=== PATIENT | female | born 1955 | race Caucasian/White ===

== ENCOUNTER → 2018-03-13 | Outpatient (CLI) | payer MEDICARE ==
[2018-03-13 12:44] LABS: HCT 41.4 % (34.0-46.0); HGB 13.4 gm/dL (11.4-16.0); MCH 30.6 pg (25.0-35.0); MCHC 32.4 g/dL (31.0-37.0); MCV 94.4 fL (80.0-100.0); Platelet Count 211 k/uL (150-450); RBC 4.38 m/uL (3.80-5.40); RDW 13.3 % (11.5-15.5); WBC 6.9 k/uL (3.8-10.6)
[2018-03-13 12:46] LABS: Appearance,Urine Clear (Clear); Bilirubin,Urine Negative (Negative); Blood,Urine Negative (Negative); Color,Urine Yellow; Glucose,Urine (UA) Negative (Negative); Ketones,Urine Negative (Negative); Leukocyte Esterase,Urine Negative (Negative); Nitrite,Urine Negative (Negative); PH, Urine 5.5 (5.0-8.0); Protein,Urine Trace (Negative); Specific Gravity,Urine 1.018 (1.001-1.035)
[2018-03-13 12:47] LABS: Albumin 4.3 g/dL (3.5-5.0); Potassium 4.2 mmol/L (3.5-5.1); Total Bilirubin 0.5 mg/dL (0.2-1.3); Total Protein 7.1 g/dL (6.3-8.2)
[2018-03-13 12:48] LABS: Partial Thromboplastin Time 24.6 sec (22.0-30.0); Prothrombin Time 10.7 sec (9.0-12.0)
== END | disposition home or self-care (01) ==
LOC: LABPAT 11:56
PROVIDERS: ATTEND Orthopaedic Surgery
DX: Z01.812 Encounter for preprocedural laboratory examination (principal); M23.8X1 Other internal derangements of right knee; Z79.01 Long term (current) use of anticoagulants
CPT/HCPCS: 36415; 80053; 81003; 85027; 85610; 85730; 87070

== ENCOUNTER 2018-03-19 09:53 | Inpatient (IN) | payer BC, MEDICARE ==
[2018-03-12 16:08] VITALS: BMI 33.6
[~2018-03-19 09:53] MED LIST: ACETAMINOPHEN TAB 500 MG TAB PO ONE; DEXAMETHASONE SOD PHOSPHATE 10 MG/ML 1 ML VIAL IV ONE; HYDROmorphone 1 MG/ML 1 ML SYRINGE IVP PRN; LIDOCAINE 1% 20 ML VIAL (10MG/ML) FOR IV START INTRADERMA PRN; MELOXICAM 7.5 MG TAB PO ONE; MIDAZOLAM (PF) 2 MG/2 ML VIAL IV PRN; ONDANSETRON 4 MG/2 ML VIAL IVP ONE; ROPIVACAINE 246.25 MG, EPINEPHrine 0.5 MG, KETOROLAC 30 MG, cloNIDine HCL/PF 80 MCG, WA... MISCELLANE ONE; SCOPOLAMINE 1.5MG/72HR PATCH TRANSDERM ONE; TRANEXAMIC ACID 1,000 MG in SODIUM CHLORIDE 0.9% 50 ML IVPB ONE; ceFAZolin IN SWFI 2 GM/20 ML SYRINGE IVP ONE
[2018-03-19] MEDS ORDERED: ROPIVACAINE 1,100 MG, SODIUM CHLORIDE 0.9% 500 ML 330 ML MISCELLANE PRN ×4 (10:57→12:15)
[2018-03-19] MEDS: LACTATED RINGERS 1,000 ML IV SCH (11:30)
[2018-03-19] MEDS ORDERED: fentaNYL (PF) 50 MCG/ML 2 ML AMP IVP ONE (11:53)
[2018-03-19] MEDS ORDERED: MIDAZOLAM 2 MG/2 ML VIAL IVP ONE (11:53)
[2018-03-19] MEDS ORDERED: ONDANSETRON 4 MG/2 ML VIAL IVP PRN (12:15)
[2018-03-19] MEDS ORDERED: HYDROcodone/APAP 5-325MG 1 EACH TAB PO PRN ×2 (12:15)
[2018-03-19] MEDS ORDERED: MAGNESIUM HYDROXIDE 2,400 MG/10 ML CUP PO PRN (12:15)
[2018-03-19] MEDS ORDERED: hydrOXYzine PAMOATE 25 MG CAP PO PRN (12:15)
[2018-03-19] MEDS ORDERED: HYDROmorphone 1 MG/ML 1 ML SYRINGE IVP PRN ×3 (12:15)
[2018-03-19] MEDS ORDERED: NALOXONE 0.4 MG/ML 1 ML VIAL IV PRN (12:15)
[2018-03-19] MEDS ORDERED: DIAZEPAM 5 MG TAB PO PRN (12:15)
[2018-03-19] MEDS ORDERED: NA PHOS,M-B/NA PHOS,DI-BA 133 ML ENEMA RECTAL PRN (12:15)
[2018-03-19] MEDS ORDERED: BISACODYL 10 MG SUPP RECTAL PRN (12:15)
--- NOTE | 2018-03-19 12:16 | P.ONQ ---
Anesthesiology Proc Note - PNB - Peripheral Nerve Block Performed Right Adductor Canal Infusion Time Out Performed: Yes (8840) Procedure Start Time: 11:52 Procedure Stop Time: 12:00 Indication: Acute Post-Operative Pain, Dx/Pain Location (Right Knee Pain), Requested by physician Sedation Type: Sedate with meaningful contact maintained Preparation: Sterile Prep Position: Supine Catheter: Indwelling Needle Types: On-Q Needle Size: 100mm (4") Technique: Ultrasound Injectate: 0.5% Ropivacaine (see comment for volume) (20ml) Blood Aspirated: No Pain Paresthesia on Injection Noted: No Resistance on Injection: Normal Events: Uneventful and Well Tolerated
[2018-03-19] MEDS ORDERED: ePHEDrine SULFATE/0.9% NACL/PF 50 MG/5 ML SYRINGE IV ONE (12:28)
[2018-03-19] MEDS ORDERED: SUCCINYLCHOLINE CHLORIDE 100 MG/5 ML SYR IV ONE (12:28)
[2018-03-19] MEDS ORDERED: MIDAZOLAM 2 MG/2 ML VIAL ONE (12:28)
[2018-03-19] MEDS ORDERED: ONDANSETRON 4 MG/2 ML VIAL ONE (12:28)
[2018-03-19] MEDS ORDERED: HYDROmorphone (PF) 1 MG/ML ONE (12:28)
[2018-03-19] MEDS ORDERED: PROPOFOL 10 MG/ML 20 ML VIAL IV ONE (12:28)
[2018-03-19] MEDS ORDERED: fentaNYL (PF) 50 MCG/ML 2 ML AMP ONE (12:28)
[2018-03-19] MEDS ORDERED: SODIUM CHLORIDE 0.9% 100 ML BAG ONE (12:28)
[2018-03-19] MEDS ORDERED: TRANEXAMIC ACID 1,000 MG/10 ML VIAL ONE (12:28)
[2018-03-19] MEDS ORDERED: ceFAZolin 3,000 MG in SODIUM CHLORIDE 0.9% IRRIGATIO 3,000 ML IRRIGATION ONE (13:00)
[2018-03-19] MEDS ORDERED: LACTATED RINGERS 1,000 ML IV ONE (13:18)
--- NOTE | 2018-03-19 14:31 | P.OP ---
Date of Procedure: 03/19/18 Preoperative Diagnosis: Ligamentous instability right total knee arthroplasty Postoperative Diagnosis: 1. Ligamentous instability right total knee arthroplasty 2. Loosening right tibial component Procedure(s) Performed: Revision right total knee arthroplasty Implants: [employer]hew Legion constrained Oxinium femoral component size 5, right [employer] Legion press-fit stem 13 mm x 160 mm Lay [employer] Neplegion revision tibial baseplate size 4, right [employer] Legion press-fit stem 11 mm x 120 mm Lay [employer] Nephew size 15 mm Carmen II constrained articular insert, size 3-4 All components were cemented using [place] bone cement with tobramycin The articulation is Oxinium on polyethylene. Anesthesia: spinal Surgeon: Dillon Finn Telecom Coordinator #1: Neda Alan Estimated Blood Loss (ml): 50 Pathology: other (Cultures 2, frozen section) Condition: stable Disposition: PACU Indications for Procedure: This is a 63-year-old female that has had a right total knee arthroplasty performed by myself in the past. She has subsequently developed ligamentous instability of her right total knee and because of this instability requires a revision of her total knee. After discussing the surgical nonsurgical treatment options with her at length she wishes to proceed with a revision of her right total knee arthroplasty. Informed consent was obtained. Operative Findings: The operative findings are consistent with ligamentous instability and gross loosening of the tibial component of the right total knee arthroplasty Description of Procedure: Patient was seen in the preoperative area consent was reviewed and operative site was marked with a skin marker. An adductor canal pain catheter was placed by anesthesia in the preoperative area. Patient was then brought to the operating room and given preoperative antibiotics intravenously. A spinal anesthetic was administered by the anesthesia department. A tourniquet was placed on the upper thigh and the lower extremity was prepped and draped in usual sterile fashion. A gram of transexamic acid was given. A universal timeout was then performed which confirmed the patient's name, surgical site, ALLERGIES, and consent. The lower extremity was then exsanguinated and tourniquet was inflated to 250 mmHg. A standard and anterior midline approach to the knee was performed. The skin and subcutaneous tissue was dissected down to the patellar tendon. A medial parapatellar arthrotomy was then performed. The knee was then extended, the patellar was everted, and the knee was again flexed. The knee was then cultured 2. A frozen section was obtained which was found to be negative for acute inflammation. The prosthesis was then evaluated and the tibial component was found to be grossly loose. Using a small oscillating saw, the cement implant interface was disrupted and the femoral and tibial components were then removed without difficulty. Next, sequential reaming of the femoral canal was then performed by hand. The femur was then sized and the distal cutting block was then placed in the distal femur was then freshened with a cut. Next the 4- in-1 cutting block was then placed, and set for the appropriate rotation. Anterior posterior chamfer cuts were then performed as well as anterior posterior cuts. The trial femur was then placed with appropriate length stem. Next the box cutting guide was placed in the bone for the box was then reamed and removed. Femoral trial was then removed. Attention was then directed to the tibia. Sequential reaming of the tibial canal was then performed with appropriate size. The intramedullary tibial cutting guide was then placed the tibia was then freshened with a minimal resection. The tibia was then sized and the canal was prepared for the stem. The tibial trial was then placed and found to have a good fit. The femoral trial was then placed as well. Next, the insert trials were then sequentially used until the appropriate-sized insert was reached. Knee was able to fully extend and flex to 120 and was stable to varus and valgus and anterior posterior stresses throughout all range of motion. Trials were then removed. The cut surfaces of bone were then irrigated with pulsatile lavage. The posterior structures were injected with the ropivacaine solution. The knee was also irrigated with Irrisept solution. The components were then opened, the cement was mixed, and the components were then cemented in place. The cement was allowed to harden with the knee in full extension. While the cement was hardening, the remaining soft tissues were then injected with a ropivacaine solution, which consisted of 246.25 mg of ropivacaine, 0.5 mg of epinephrine, 30 mg of Toradol, 80 g of clonidine, and 48.45 mL of sterile water, for a total of 100 mL of fluid injected. After the cemented hardened. The tourniquet was released, and hemostasis was obtained. A second gram of transexamic acid was given. The knee was again irrigated. The knee was again taken through range of motion and found to be stable throughout all range of motion of 0-130 , and the patella tracked normally. The fascia was then closed with #2 strata fix suture. The subcutaneous tissue was closed with 3-0 Vicryl and 3-0 strata fix. Dermabond glue was used for the skin and placed with the knee in flexion. The patient was placed in a sterile silver dressing. Patient was then transferred to recovery room in stable condition. The classroom assistant MAN [place] was required due the complexity surgery and the need for a skilled rn medical surgical. She assisted in positioning, draping, retraction, and closure of the wound.
[2018-03-19] MEDS: SODIUM CHLORIDE 0.9% 1,000 ML IV SCH (17:38)
--- NOTE | 2018-03-19 17:38 | P.CONS ---
History of Present Illness - Reason for Consult Consult date: 03/19/18 Medical management of hypertension dyslipidemia GERD and coronary disease Requesting physician: Dillon Finn - Chief Complaint Medical management - History of Present Illness The patient is a 63-year-old female with a past with a history of coronary artery disease, essential hypertension, hyperlipidemia and GERD who is admitted to orthopedic service under and is currently postop after having revision of the total right knee arthroplasty earlier today. The patient is doing well she'll he complains of mild tingling on the right anterior knee, otherwise no pain after having local nerve block. She denies any chest pain, She denies shortness of air, denies nausea vomiting or abdominal pain. She has no complaints, the patient has a significant pack history and spoke approximately 1 pack per day. The patient has received perioperative antibiotics with cefazolin per primary team. Review of Systems Pertinent positives per HPI all other systems otherwise negative Past Medical History Past Medical History: GERD/Reflux, Hearing Disorder / Deafness, Hyperlipidemia, Hypertension, Osteoarthritis (OA), Skin Disorder Additional Past Medical History / Comment(s): loose appliance rt knee, NEUROPATHY JEROME FEET. VARICOSE VEINS. skin pigmentation. History of Any Multi-Drug Resistant Organisms: MRSA Year Discovered:: 2014 MDRO Source:: LT AXILLA Past Surgical History: Section, Cholecystectomy, Hernia Repair, Hysterectomy, Joint Replacement, Orthopedic Surgery Additional Past Surgical History / Comment(s): C-S X2. JEROME TOTAL KNEES. RT WRIST CARPAL TUNNEL. JEROME BUNION SURG,hernia x2 Past Anesthesia/Blood Transfusion Reactions: Motion Sickness, Postoperative Nausea & Vomiting (PONV) Additional Past Anesthesia/Blood Transfusion Reaction / Comm: no hx blood transfusion Smoking Status: Current every day smoker - Past Family History Mother Family Medical History: No Reported History Medications and Allergies Home Medications Medication Instructions Recorded Confirmed Type Calcium Carbonate [Calcium] 600 mg PO DAILY 09/05/15 03/12/18 History Meloxicam [Mobic] 15 mg PO DAILY 09/05/15 03/12/18 History [place]-3 Fatty Acids/Fish Oil [Fish 520 mg PO DAILY 09/05/15 03/12/18 History Oil 1,000 mg Softgel] Simvastatin [Zocor] 20 mg PO HS 09/05/15 03/12/18 History Aspirin [Adult Low Dose Aspirin EC] 81 mg PO DAILY 10/10/15 03/12/18 History Gabapentin 600 mg PO BID 10/10/15 03/12/18 History Lisinopril-Hctz 20-25 mg 1 tab PO HS 10/10/15 03/12/18 History [Zestoretic 20-25] Atenolol [Tenormin] 25 mg PO QAM 11/15/15 03/12/18 History Isosorbide Mononitrate [Isosorbide 30 mg PO QAM 11/15/15 03/12/18 History Mononitrate ER] Ascorbic Acid [Vitamin C] 500 mg PO DAILY 03/12/18 03/12/18 History Cholecalciferol [Vitamin D3] 1,000 unit PO DAILY 03/12/18 03/12/18 History Omeprazole 20 mg PO HS 03/12/18 03/12/18 History Vitamin E (Dl,Tocopheryl Acet) 400 unit PO DAILY 03/12/18 03/12/18 History [Vitamin E] Allergies Allergy/AdvReac Type Severity Reaction Status Date / Time No Known Allergies Allergy Verified 03/19/18 10:50 Physical Exam Vitals: Vital Signs Temp Pulse Resp BP Pulse Ox 03/19/18 17:16 97.5 F L 62 117/56 91 L 03/19/18 16:45 73 16 106/56 94 L 03/19/18 16:15 81 16 110/57 94 L 03/19/18 15:45 70 16 149/65 95 03/19/18 15:22 78 16 140/65 99 03/19/18 15:07 80 16 131/60 98 03/19/18 14:52 97.4 F L 88 17 121/60 95 03/19/18 10:53 98.1 F 64 16 109/55 96 Intake and Output 03/19/18 03/19/18 03/19/18 06:59 14:59 22:59 Intake Total 1601 200 Balance 1601 200 Intake: IV 1601 200 Constitutional: No acute distress, conversant, pleasant Eyes: Anicteric sclerae, moist conjunctiva, no lid-lag, PERRLA ENMT: NC/AT,Oropharynx clear, no erythema, exudates Neck:Supple, FROM, no masses, or JVD, No carotid bruits; No thyromegaly Lungs: Clear to auscultation, Clear to percussion, Normal respiratory effort, no accessory muscle use Cardiovascular: Heart regular in rate and rhythm, No murmurs, gallops, or rubs no peripheral edema Abdominal: Soft Nontender, nom distended, no guarding, no rebound or rigidity, Normoactive bowel sounds No hepatomegaly, No splenomegaly, No palpable mass No abdominal wall hernia noted Skin: Normal temperature, tone, texture, turgor, No induration No subcutaneous nodules, No rash, lesions, No ulcers Extremities: Bandaged and dressed right lower extremity, neurovascularly intact Psychiatric: Alert and oriented to person, place and time, Appropriate affect Intact judgement Neuro: Muscles Strength 5/5 in all 4 extremities, Sensation to light touch grossly present throughout, Cranial nerves II-XII grossly intact. No focal sensory deficits Assessment and Plan (1) Coronary artery disease Current Visit: Yes Status: Acute Code(s): I25.10 - ATHSCL HEART DISEASE OF [place] CORONARY ARTERY W/O ANG PCTRS SNOMED Code(s): 51324064 (2) Essential hypertension Current Visit: Yes Status: Acute Code(s): I10 - ESSENTIAL (PRIMARY) HYPERTENSION SNOMED Code(s): 94395517 (3) GERD (gastroesophageal reflux disease) Current Visit: No Status: Chronic Code(s): K21.9 - GASTRO-ESOPHAGEAL REFLUX DISEASE WITHOUT ESOPHAGITIS SNOMED Code(s): 675499465 (4) Hyperlipidemia Current Visit: No Status: Chronic Code(s): E78.5 - HYPERLIPIDEMIA, UNSPECIFIED SNOMED Code(s): 49994990 (5) Tobacco abuse Current Visit: Yes Status: Acute Code(s): Z72.0 - TOBACCO USE SNOMED Code( s): 978611724 Plan: The patient is admitted to primary orthopedic service and is doing well postoperatively after having a revision of the right total knee arthroplasty secondary to ligamentous instability and loosening of the right tibial component. She is receiving perioperative antibiotics with cefazolin, patient has minimal pain and is hemodynamically stable. Agree with continuing her home medications, will order her a nicotine patch. We'll continue to follow with you I appreciate the opportunity to be involved in ongoing care of this patient. For further questions concerning his did contact the [facility] emergency department inpatient team
--- NOTE | 2018-03-19 17:43 | XR ---
EXAMINATION TYPE: XR knee limited RT DATE OF EXAM: 03/19/2018 COMPARISON: NONE HISTORY: Postop knee surgery TECHNIQUE: 2 views FINDINGS: There is a right knee prosthesis. Components are in anatomic position. IMPRESSION: Revision of right knee surgery. No complicating process seen.
[2018-03-19] MEDS: ceFAZolin IN SWFI 2 GM/20 ML SYRINGE IVP SCH ×2 (18:24→23:25)
[2018-03-19] MEDS ORDERED: SENNOSIDES-DOCUSATE SODIUM 1 EACH TAB PO SCH (21:00)
[2018-03-19] MEDS ORDERED: NICOTINE 21MG/24HR PATCH TRANSDERM SCH (22:40)
[2018-03-19] MEDS ORDERED: MELATONIN 3 MG TABLET PO PRN (22:40)
[2018-03-20] MEDS: SODIUM CHLORIDE 0.9% 1,000 ML IV SCH (02:15)
[2018-03-20] MEDS: ASPIRIN 325 MG TAB PO SCH ×2 (02:15→08:46)
[2018-03-20 07:00] VITALS: BP 147/61; PULSE 68; RESP 16; TEMP 98.7
--- NOTE | 2018-03-20 07:20 | P.PN ---
Progress Note - Text Progress Note Date: 03/20/18 53-year-old female status post left total knee arthroplasty postop day #1 with adductor canal catheter day #2. Infusing at a rate of 8 ML's an hour. VAS is a 0 out of 10 severity currently. Patient does complain of mild headache. No motor sensory deficits. Tolerating diet. Decreased right to 6 ML's an hour. Continue current therapy
[2018-03-20] MEDS: LACTATED RINGERS 1,000 ML IV SCH (07:22)
[2018-03-20 08:20] LABS: Basophils % (A) 0 %; Eosinophils % (A) 0 %; HCT 34.9 % (34.0-46.0); HGB 11.7 gm/dL (11.4-16.0); Lymphocytes # (A) 1.2 k/uL (1.0-4.8); Lymphocytes % (A) 11 %; MCH 31.2 pg (25.0-35.0); MCHC 33.5 g/dL (31.0-37.0); MCV 93.2 fL (80.0-100.0); Mean Platelet Volume 6.9; Monocytes # (A) 0.6 k/uL (0-1.0); Monocytes % (A) 5 %; Neutrophils # (A) 9.6 k/uL (1.3-7.7); Neutrophils % (A) 83 %; Platelet Count 190 k/uL (150-450); RBC 3.74 m/uL (3.80-5.40); WBC 11.6 k/uL (3.8-10.6)
[2018-03-20] MEDS ORDERED: Acetaminophen-Codeine 300-30mg TAB PO PRN ×2 (08:43)
[2018-03-20] MEDS ORDERED: ISOSORBIDE MONONITRATE ER 30 MG TAB.ER.24H PO SCH (09:00)
[2018-03-20] MEDS ORDERED: MELOXICAM 7.5 MG TAB PO SCH (09:00)
[2018-03-20] MEDS ORDERED: GABAPENTIN 300 MG CAP PO SCH (09:00)
[2018-03-20] MEDS ORDERED: ATENOLOL 25 MG TAB PO SCH (09:00)
[2018-03-20] MEDS ORDERED: CHOLECALCIFEROL 1,000 UNIT TAB PO SCH (09:00)
--- NOTE | 2018-03-20 09:17 | P.DS ---
Providers Date of admission: 03/19/18 09:53 Expected date of discharge: 03/20/18 Attending physician: Dillon Finn Consults: 03/19/18 12:15 Consult Physician Routine Consulting Provider: Domenica Verdugo Consult Reason/Comments: medical management Do you want consulting provider notified?: Yes 03/19/18 17:00 Consult Physician Routine Consulting Provider: Constantino Physician Consult Reason/Comments: medical management Do you want consulting provider notified?: Yes Primary care physician: Domenica Walker - Discharge Diagnosis(es) (1) Ligamentous laxity of right knee Current Visit: Yes Status: Acute (2) S/P revision of total knee Current Visit: Yes Status: Acute (3) Loose total knee arthroplasty Current Visit: Yes Status: Acute Hospital Course: This is a 63-year-old female who had a previous right total knee arthroplasty on 05/29/2012. Patient developed pain and ligamentous instability in the right knee. The patient presents for evaluation. After discussion and consideration patient elects to proceed with revision right total knee arthroplasty. The patient is seen preoperatively by Dr. Finn and medically cleared for surgery by their primary care physician. Patient is admitted to [facility] on 03/19/2018 for revision right total knee arthroplasty. The procedures performed without complication or sequelae. The patient is doing well postoperatively. Labs and vital signs are stable on day of discharge. On day of discharge patient's knee incision is healing well. There is minimal erythema. There is no drainage noted at this time. There is minimal soft tissue swelling to the knee. Patient has full foot and ankle motion without difficulty or pain. Neurovascular status to the right lower extremity is intact. Patient is discharged home in good condition. Please see med rec for accurate list of home medications. Plan - Discharge Summary Discharge Rx Participant: Yes New Discharge Prescriptions: New Aspirin 325 mg PO BID #60 tab Sennosides [Senokot] 1 tab PO BID #60 tablet Acetaminophen-Codeine 300-30mg [Tylenol #3] 1 - 2 tab PO Q4-6H PRN #84 tablet PRN Reason: Pain No Action Simvastatin [Zocor] 20 mg PO HS Calcium Carbonate [Calcium] 600 mg PO DAILY [place]-3 Fatty Acids/Fish Oil [Fish Oil 1,000 mg Softgel] 1 cap PO DAILY Meloxicam [Mobic] 15 mg PO DAILY Lisinopril-Hctz 20-25 mg [Zestoretic 20-25] 1 tab PO HS Gabapentin 600 mg PO BID Aspirin [Adult Low Dose Aspirin EC] 81 mg PO DAILY Isosorbide Mononitrate [Isosorbide Mononitrate ER] 30 mg PO QAM Atenolol [Tenormin] 25 mg PO QAM Vitamin E (Dl,Tocopheryl Acet) [Vitamin E] 400 unit PO DAILY Cholecalciferol [Vitamin D3] 1,000 unit PO DAILY Ascorbic Acid [Vitamin C] 500 mg PO DAILY Omeprazole 20 mg PO HS Discharge Medication List Calcium Carbonate [Calcium] 600 mg PO DAILY 09/05/15 [History] Meloxicam [Mobic] 15 mg PO DAILY 09/05/15 [History] [place]-3 Fatty Acids/Fish Oil [Fish Oil 1,000 mg Softgel] 1 cap PO DAILY [History] Simvastatin [Zocor] 20 mg PO HS 09/05/15 [History] Aspirin [Adult Low Dose Aspirin EC] 81 mg PO DAILY 10/10/15 [History] Gabapentin 600 mg PO BID 10/10/15 [History] Lisinopril-Hctz 20-25 mg [Zestoretic 20-25] 1 tab PO HS 10/10/15 [History] Atenolol [Tenormin] 25 mg PO QAM 11/15/15 [History] Isosorbide Mononitrate [Isosorbide Mononitrate ER] 30 mg PO QAM 11/15/15 [ History] Ascorbic Acid [Vitamin C] 500 mg PO DAILY 03/12/18 [History] Cholecalciferol [Vitamin D3] 1,000 unit PO DAILY 03/12/18 [History] Omeprazole 20 mg PO HS 03/12/18 [History] Vitamin E (Dl,Tocopheryl Acet) [Vitamin E] 400 unit PO DAILY 03/12/18 [History] Acetaminophen-Codeine 300-30mg [Tylenol #3] 1 - 2 tab PO Q4-6H PRN #84 tablet [Rx] Aspirin 325 mg PO BID #60 tab 03/20/18 [Rx] Sennosides [Senokot] 1 tab PO BID #60 tablet 03/20/18 [Rx] Follow up Appointment(s)/Referral(s): Dillon Finn DO [Doctor of Osteopathic Medicine] - 2 Weeks Ambulatory/Diagnostic Orders: Continuous Passive Motion (CPM) Machine [DME.AMB1] Time Frame: 3 Weeks, Location : None Selected Activity/Diet/Wound Care/Special Instructions: Weightbearing as tolerated with a walker. CPM 5-6h daily. Leave dressing intact. May be removed by home care nurse in 10 days. May shower with dressing on. Please follow up with [facility] and call with any questions or concerns, . Discharge Disposition: HOME WITH HOME HEALTH SERVICES
--- NOTE | 2018-03-20 10:05 | P.PN ---
Subjective Progress Note Date: 03/20/18 Patient is doing well today. She was up in the chair when I saw her. She does not have any complaints. She is looking forward to be discharged today. Objective - Vital Signs Vital signs: Vital Signs Temp 98.7 F 03/20/18 06:59 Pulse 68 03/20/18 06:59 Resp 16 03/20/18 06:59 BP 147/61 03/20/18 06:59 Pulse Ox 93 L 03/20/18 06:59 Intake & Output 03/19/18 03/20/18 03/20/18 18:59 06:59 18:59 Intake Total 1801 630 Balance 1801 630 Weight 91.626 kg Intake: IV 1801 Intake, IV Titration 630 Amount Sodium Chloride 0.9% 1, 630 000 ml @ 70 mls/hr IV . [id number] [facility] Rx#:[id number] Other: Voiding Method Toilet # Voids 2 - Exam General: The patient is awake and alert, in no distress Eye: there is normal conjunctiva bilaterally. Neck: The neck is supple, there is no JVD. Cardiovascular: Normal S1-S2, no S3-S4, no murmurs. Respiratory: Lungs clear to auscultation bilaterally Gastrointestinal: Abdomen is soft, nontender Musculoskeletal: There is no pedal edema. Neurological:. Speech is normal. Skin: Skin is warm and dry - Labs CBC & Chem 7: 03/20/18 07:25 Labs: Abnormal Lab Results - Last 24 Hours (Table) 03/20/18 Range/Units 07:25 WBC 11.6 H (3.8-10.6) k/uL RBC 3.74 L (3.80-5.40) m/uL Neutrophils # 9.6 H (1.3-7.7) k/uL Microbiology - Last 24 Hours (Table) 03/19/18 13:03 Gram Stain - Preliminary Knee - Right Wound Culture - Preliminary 03/19/18 13:03 Gram Stain - Preliminary Knee - Right Wound Culture - Preliminary 03/19/18 13:03 Anaerobic Culture - Preliminary Knee - Right 03/19/18 13:03 Anaerobic Culture - Preliminary Knee - Right Assessment and Plan Assessment: 1. Status post revision of right total knee arthroplasty. Postoperative care per orthopedic. 2. DVT prophylaxis with 40 dose aspirin twice daily per orthopedic protocol 3. Essential hypertension: Blood pressure within acceptable range continue home medications 4. Hyperlipidemia, on simvastatin 5. GERD Today, I reviewed her medication list and lab work results. Continue current regimen. PT/OT. Patient is medically cleared for discharge per primary team.
[2018-03-20] MEDS ORDERED: ATORVASTATIN 10 MG TAB PO SCH (21:00)
[2018-03-20] MEDS ORDERED: PANTOPRAZOLE 40 MG TABLET PO SCH (21:00)
[2018-03-20] MEDS ORDERED: LISINOPRIL-HCTZ 20-25 MG 1 EACH TAB PO SCH (21:00)
== END 2018-03-20 15:22 | disposition home health service (06) | DRG 468 ==
LOC: 2ORMAIN 09:53 → 4SSUR 16:46
PROVIDERS: ADMIT Orthopaedic Surgery; ATTEND Orthopaedic Surgery
PROC: 0SPC0JZ Removal of Synthetic Substitute from Right Knee Joint, Open Approach (ICD-10-PCS; principal; 2018-03-19 11:30)
PROC: 0SRC06A Replacement of Right Knee Joint with Oxidized Zirconium on Polyethylene Synthetic Substitute, Uncemented, Open Approach (ICD-10-PCS; principal; 2018-03-19 11:30)
DX: T84.032A Mechanical loosening of internal right knee prosthetic joint, initial encounter (principal); T84.022A Instability of internal right knee prosthesis, initial encounter; E78.5 Hyperlipidemia, unspecified; F17.200 Nicotine dependence, unspecified, uncomplicated; H91.90 Unspecified hearing loss, unspecified ear; I10 Essential (primary) hypertension; I25.10 Atherosclerotic heart disease of native coronary artery without angina pectoris; K21.9 Gastro-esophageal reflux disease without esophagitis; M23.8X1 Other internal derangements of right knee; Z79.1 Long term (current) use of non-steroidal anti-inflammatories (NSAID); Z79.82 Long term (current) use of aspirin; Z90.710 Acquired absence of both cervix and uterus; Y83.8 Other surgical procedures as the cause of abnormal reaction of the patient, or of later complication, without mention of misadventure at the time of the procedure
CPT/HCPCS: 85025; 87070; 87075; 87205; 88305; 88331

== ENCOUNTER → 2019-01-01 | Outpatient (CLI) | payer MEDICARE ==
--- NOTE | 2019-01-03 13:01 | BD ---
EXAMINATION TYPE: Axial Bone Density DATE OF EXAM: 01/01/2019 COMPARISON: NONE CLINICAL HISTORY: 63 YR OLD FEMALE...ICD-10 CODE: M89.9 DISORDER OF BONE Height: 63.3 Weight: 196 FRAX RISK QUESTIONS: Current Tobacco Use: YES RISK FACTORS HISTORY OF: Diet low in dairy products/other sources of calcium: YES Postmenopausal woman: YES, AT ABOUT 48 YRS OLD Hyperparathyroidism: NO Adrenal Insufficiency: NO MEDICATIONS: Additional Medications: BP MEDS, REFLUX MEDS, STATIN FOR CHOLESTEROL, CALCIUM, VIT D, MOBIC Additional History: BILAT KNEE REPLACEMENTS, OSTEOARTHRITIS, HYPERTENSION, CHOLESTEROL EXAM MEASUREMENTS: Bone mineral densitometry was performed using the [employer] System. Bone mineral density as measured about the Lumbar spine is: ----- L1-L4(G/cm2): 1.569 T Score Values are as follows: ----- L1: 4.3 ----- L2: 3.4 ----- L3: 2.5 ----- L4: 2.9 ----- L1-L4: 3.2 Bone mineral density BASELINE Bone mineral density about the R hip (g/cm2): 0.924 Bone mineral density about the L hip (g/cm2): 0.978 T Score values are as follows: -----R Neck: -0.4 -----L Neck: -0.9 -----R Total: -0.7 -----L Total: -0.2 Bone mineral density BASELINE DEXA STUDY FRAX%s: THERE IS A 7.3% CHANCE FOR A MAJOR OSTEOPOROTIC FX AND A 0.8% FOR HIP....PROBABILITY FOR FX IN 10 YRS TIME IMPRESSION: Normal (Values between +1 and -1 indicate normal bone mass). Consider repeating this study in 5 year s or sooner if there is some new clinical indication. NOTE: T-SCORE=SD OF THE YOUNG ADULT MEAN.
== END | disposition home or self-care (01) ==
LOC: RADBDWWP 16:12
PROVIDERS: ATTEND Internal Medicine
DX: Z13.820 Encounter for screening for osteoporosis (principal); M89.9 Disorder of bone, unspecified
CPT/HCPCS: 77080

== ENCOUNTER 2020-03-01 08:37 | Day surgery (SDC) | payer MEDICARE ==
[2020-02-29 09:46] VITALS: BMI 33.3
[~2020-03-01 08:37] MED LIST changes: -ACETAMINOPHEN TAB 500 MG TAB PO ONE; -DEXAMETHASONE SOD PHOSPHATE 10 MG/ML 1 ML VIAL IV ONE; -HYDROmorphone 1 MG/ML 1 ML SYRINGE IVP PRN; +LACTATED RINGERS 1,000 ML IV SCH; -LIDOCAINE 1% 20 ML VIAL (10MG/ML) FOR IV START INTRADERMA PRN; -MELOXICAM 7.5 MG TAB PO ONE; -MIDAZOLAM (PF) 2 MG/2 ML VIAL IV PRN; -ONDANSETRON 4 MG/2 ML VIAL IVP ONE; -ROPIVACAINE 246.25 MG, EPINEPHrine 0.5 MG, KETOROLAC 30 MG, cloNIDine HCL/PF 80 MCG, WA... MISCELLANE ONE; -SCOPOLAMINE 1.5MG/72HR PATCH TRANSDERM ONE; -TRANEXAMIC ACID 1,000 MG in SODIUM CHLORIDE 0.9% 50 ML IVPB ONE; -ceFAZolin IN SWFI 2 GM/20 ML SYRINGE IVP ONE
[2020-03-01 08:56] VITALS: TEMP 98
[2020-03-01] MEDS ORDERED: LIDOCAINE 1% (10MG/ML) FOR IV START INTRADERMA ONE (09:05)
[2020-03-01] MEDS ORDERED: PROPOFOL 10 MG/ML 20 ML VIAL IV ONE (09:29)
[2020-03-01] MEDS ORDERED: LIDOCAINE 1% INJ 10MG/ML (20 ML MDV) ONE (09:29)
--- NOTE | 2020-03-01 09:52 | P.PCN ---
Date of Procedure: 03/01/20 Procedure(s) Performed: BRIEF HISTORY: Patient is a 65-year-old pleasant female scheduled for an elective colonoscopy as a part of evaluation of chronic diarrhea for the last 2 months duration. Probable centimeter from 10-12 a day which are loose to watery in consistency. No blood or mucus in the stool. Her last colonoscopy was 12 years ago. PROCEDURE PERFORMED: Colonoscopy random biopsies. PREOPERATIVE DIAGNOSIS: Chronic Diarrhea of 4 months duration. IV sedation per Anesthesia. PROCEDURE: After informed consent was obtained, the patient, was brought into the endoscopy unit. IV sedation was administered by Anesthesia under continuous monitoring. Digital rectal examination was normal. Initially the Olympus CF-160 flexible video colonoscope was then inserted in the rectum, gradually advanced into the cecum with [id number]. Careful examination was performed as the scope was gradually being withdrawn. Ileocecal valve and the appendiceal orifice were visualized and appeared normal. Prep was excellent. Mucosa of the cecum, ascending colon, transverse colon, descending colon, sigmoid colon, and rectum appeared normal. Scattered sigmoid diverticulosis seen. Random biopsies were done from ascending and descending colon to rule out microscopic/collagenous colitis. Retroflexion was performed in the rectum and no lesions were seen. The patient tolerated the procedure well. IMPRESSION: Normal-appearing colon from rectum to cecum with no evidence of colitis or colorectal neoplasia. Scattered sigmoid diverticulosis. RECOMMENDATIONS: Findings of this examination were discussed with the patient as well as her family. She was advised to follow with the biopsy results. She'll be seen in office in one week..
[2020-03-01 10:22] VITALS: BP 115/72; PULSE 72; RESP 20
== END 2020-03-01 10:42 | disposition home or self-care (01) ==
LOC: ORWHC2ENDO 08:37
PROVIDERS: ATTEND Internal Medicine Gastroenterology
DX: K52.831 Collagenous colitis (principal); K57.30 Diverticulosis of large intestine without perforation or abscess without bleeding; E78.5 Hyperlipidemia, unspecified; K21.9 Gastro-esophageal reflux disease without esophagitis; G62.9 Polyneuropathy, unspecified; F41.9 Anxiety disorder, unspecified; Z79.899 Other long term (current) drug therapy
CPT/HCPCS: 88305; 88313; 45380; J2001; J2704

== ENCOUNTER → 2021-04-09 | Outpatient (CLI) | payer MEDICARE ==
[2021-04-09 12:53] LABS: HCT 44.6 % (34.0-46.0); MCH 32.9 pg (25.0-35.0); MCHC 33.5 g/dL (31.0-37.0); MCV 98.2 fL (80.0-100.0); Mean Platelet Volume 6.7; Platelet Count 268 k/uL (150-450); RBC 4.54 m/uL (3.80-5.40); RDW 13.5 % (11.5-15.5); WBC 7.6 k/uL (3.8-10.6)
[2021-04-09 13:04] LABS: INR 0.9 (<1.2); Partial Thromboplastin Time 24.3 sec (22.0-30.0); Prothrombin Time 10.2 sec (9.0-12.0)
[2021-04-09 13:08] LABS: Albumin 4.3 g/dL (3.5-5.0); Potassium 4.2 mmol/L (3.5-5.1); Total Bilirubin 0.5 mg/dL (0.2-1.3); Total Protein 7.2 g/dL (6.3-8.2)
[2021-04-09 13:16] LABS: Appearance,Urine Clear (Clear); Bilirubin,Urine Negative (Negative); Blood,Urine Negative (Negative); Color,Urine Yellow; Glucose,Urine (UA) Negative (Negative); Ketones,Urine Negative (Negative); Leukocyte Esterase,Urine Negative (Negative); Nitrite,Urine Negative (Negative); PH, Urine 5.5 (5.0-8.0); Protein,Urine Negative (Negative); Specific Gravity,Urine 1.007 (1.001-1.035); Urobilinogen,Urine <2.0 mg/dL (<2.0)
== END | disposition home or self-care (01) ==
LOC: LABPAT 11:31
PROVIDERS: ATTEND Orthopaedic Surgery
DX: Z01.818 Encounter for other preprocedural examination (principal); I45.10 Unspecified right bundle-branch block
CPT/HCPCS: 80053; 81003; 85027; 85610; 85730; 87070; 93005

== ENCOUNTER 2021-04-24 08:04 | Day surgery (SDC) | payer MEDICARE ==
[2021-04-18 17:33] VITALS: BMI 33.3
[~2021-04-24 08:04] MED LIST changes: +ACETAMINOPHEN TAB 500 MG TAB PO PRN; +DEXAMETHASONE SOD PHOSPHATE 4 MG/ML 1 ML VIAL IV ONE; +GABAPENTIN 300 MG CAP PO PRN; +HYDROcodone/APAP 7.5-325MG 1 EACH TAB PO PRN; +HYDROmorphone 0.2 MG/1 ML SYRINGE IVP PRN; +HYDROmorphone 0.5 MG/0.5 ML SYRINGE IVP PRN; -LACTATED RINGERS 1,000 ML IV SCH; +LIDOCAINE 1% (10MG/ML) FOR IV START INTRADERMA PRN; +MAGNESIUM HYDROXIDE 2,400 MG/10 ML CUP PO PRN; +MELOXICAM 7.5 MG TAB PO PRN; +MIDAZOLAM 2 MG/2 ML VIAL IV PRN; +NALOXONE 0.4 MG/ML 1 ML VIAL IV PRN; +ONDANSETRON 4 MG/2 ML VIAL IVP ONE; +ONDANSETRON 4 MG/2 ML VIAL IVP PRN; +TRANEXAMIC ACID 1,000 MG in SODIUM CHLORIDE 0.9% 100 ML IVPB PRN
[2021-04-24] MEDS: LACTATED RINGERS 1,000 ML IV SCH (08:51)
[2021-04-24] MEDS ORDERED: LIDOCAINE 1% INJ 10MG/ML (20 ML MDV) ONE (09:35)
[2021-04-24] MEDS ORDERED: diphenhydrAMINE 50 MG/ML 1 ML VIAL ONE (09:35)
[2021-04-24] MEDS ORDERED: MIDAZOLAM 2 MG/2 ML VIAL ONE (09:35)
[2021-04-24] MEDS ORDERED: fentaNYL (PF) 50 MCG/ML 2 ML AMP ONE (09:35)
[2021-04-24] MEDS ORDERED: SODIUM CHLORIDE 0.9% 100 ML BAG ONE (09:35)
[2021-04-24] MEDS ORDERED: KETAMINE 10 MG/ML 20 ML VIAL ONE (09:35)
[2021-04-24] MEDS ORDERED: TRANEXAMIC ACID 1,000 MG/10 ML VIAL ONE (09:35)
[2021-04-24] MEDS ORDERED: GLYCOPYRROLATE 0.2 MG/ML 2 ML VIAL ONE (09:35)
[2021-04-24] MEDS ORDERED: PROPOFOL 10 MG/ML 20 ML VIAL IV ONE (09:35)
[2021-04-24] MEDS ORDERED: ROPIVACAINE 5 MG/ML 30 ML VIAL MISCELLANE ONE ×2 (10:16→10:59)
[2021-04-24] MEDS ORDERED: ceFAZolin 1,000 MG in SODIUM CHLORIDE 0.9% 1,000 ML IRRIGATION ONE (10:17)
--- NOTE | 2021-04-24 11:06 | P.OP ---
Date of Procedure: 04/24/21 Preoperative Diagnosis: Severe osteoarthritis right hip Postoperative Diagnosis: Severe osteoarthritis right hip Procedure(s) Performed: Right total hip arthroplasty with a direct anterior approach Implants: [employer] Polarstem standard size 2 ben [employer] R3, 3 hole hemispherical acetabular shell, 52 mm [employer] Reflection 6.5 mm cancellus screw, 25 mm 2 [employer] R3, XLPE 20 acetabular liner [employer] Oxinium femoral head 36 m, +8 All components were press-fit. The articulation is Oxinium on polyethylene. Anesthesia: spinal Surgeon: Dillon Finn Summer Clerk #1: Neda Alan Estimated Blood Loss (ml): 200 Pathology: other (Femoral head) Condition: stable Disposition: PACU Indications for Procedure: After failure of conservative treatment we discussed the surgical and n onsurgical treatment options at length. Patient wishes to proceed with a total hip arthroplasty with a direct anterior approach. Complications specific to this procedure were discussed at length, including but not limited to infection, leg length discrepancy, dislocation, nerve injury, and fracture. Covid-19 was also discussed at length with the patient, and they are aware of the current policies and procedures. The patient was given the option of delaying surgery, but they elect to proceed knowing these risks. Patient is aware of all these complications and informed consent was obtained Operative Findings: The operative findings are consistent with severe osteoarthritis of the right hip Description of Procedure: Patient was seen and evaluated in the preoperative area and the consent was reviewed. The operative site was marked with a skin marker. The patient was then brought to the operating room and given preoperative antibiotics intravenously. 1 g of Tranexamic acid was also given intravenously. A spinal anesthetic was administered by the anesthesia department. The patient was then placed on the [place] table with the bony prominences well-padded. The hip area was then prepped with a ChloraPrep solution and draped in the usual sterile fashion. A universal timeout was then performed, which confirmed the patient's name, surgical site, ALLERGIES, and procedure being performed on the consent. Next the incision site was located at 1 cm distal and 2 cm lateral to the anterior superior iliac spine. The skin and subcutaneous tissues were sharply incised. Incision was carefully dissected down to the fascia overlying the tensor fascia lillian muscle. This fascia was then incised in line with the incision. Care was taken to stay laterally in order to avoid injuring the lateral femoral cutaneous nerve. Next, using blunt finger dissection, the tensor fascia lillian muscle was dissected off its investing fascia. The muscle was then carefully retracted laterally with a cobra retractor over the lateral neck of the femur. Next, the circumflex vessels were identified and cauterized using the AquaMantis device. The anterior hip capsule was then exposed. The capsule was then opened and an inverted T fashion. Cobra retractors were then placed intracapsularly. The retractors were maintained intracapsular throughout the procedure. The proximal femur was then visualized. Fluoroscopic x-rays were then taken in order to evaluate the preoperative leg lengths. A small amount of traction was placed on the leg. The femoral neck was then osteotomized at the appropriate level above the lesser trochanter. A small wedge of bone was then removed from the remaining femoral head. Next, using a corkscrew the femoral head was removed from the acetabulum. On gross visual inspection, the femoral head had complete loss of articular cartilage and multiple periarticular osteophytes. The femoral head was then measured. Attention was then turned to the acetabulum. The acetabulum was exposed and any remaining labrum was excised. Sequential reaming of the acetabulum was performed using fluoroscopic guidance until there was a good bed of bleeding cancellus bone. When the appropriate size was reached, a trial was then placed. The position and fit of the trial was checked with fluoroscopy. The trial was then removed. Then, using fluoroscopic guidance, the final implant was impacted at 20 of anteversion and 40 of abduction, and fully seated in the acetabulum. 2 screws were then placed in the acetabulum. Again fluoroscopy was used to check position of the screws. Next, the liner was then impacted, with a 20 elevated liner located in the anterior superior quadrant. Component locking was confirmed. Attention was then directed to the femur. With the aid of the [place] table, the femur was externally rotated to approximately 130, extended, and adducted under the opposite leg. A side hook was then placed under the proximal femur, and the side hook elevator was used to elevate the proximal femur while releasing the capsule. Retractors were then placed. A capsular release was performed, as well as a release of the conjoined tendon, which afforded excellent visualization of the proximal femur. Next, a box osteotome was used to lateralize the proximal femur. A security incident handler was then used to locate the femoral canal. Sequential broaching was then performed with appropriate size which afforded excellent fixation in the proximal femur. A trial was then placed with appropriate head and neck, and the hip was gently reduced with the aid of the [place] table. Fluoroscopy was then used to check position of the components, as well as to ensure equal leg lengths. The hip was then gently dislocated and the trials were then removed. Final implants were then impacted and the hip was again reduced. Final fluoroscopic x-rays confirmed that the components were in anatomic position, as well as equal leg lengths. The hip was also taken through range of motion, and found to be stable. The hip was then copiously irrigated with antibiotic solution with pulsatile lavage. The hip was then irrigated with Irrisept solution. The soft tissues were then injected with a ropivacaine solution. A second dose of 1 g of Tranexamic acid was also given intravenously. The fascia was then closed with 2-0 strata fix suture. The subcutaneous tissue was closed with 3-0 Vicryl. The subcuticular tissue was closed with 3-0 strata fix suture. The skin was then closed with Exofin skin glue. After the glue and dried, and Optifoam silver impregnated dressing was applied. The patient was then transferred to the recovery room in stable condition. The temporary administrative assistant MAN [place] was required due to the complexity of surgery, and the need for skilled assembler surgical garment for positioning, draping, exposure, retraction, and closure of the wound.
--- NOTE | 2021-04-24 12:03 | XR ---
EXAMINATION TYPE: XR Hip Limited RT DATE OF EXAM: 04/24/2021 COMPARISON: NONE HISTORY: Postop TECHNIQUE: One view submitted. FINDINGS: There is postsurgical change in near anatomic alignment. There is soft tissue edema and emphysema. IMPRESSION: 1. Postoperative change. Appears in near-anatomic alignment.
--- NOTE | 2021-04-24 12:07 | FL ---
EXAMINATION TYPE: FL guidance operating room DATE OF EXAM: 04/24/2021 HISTORY: Fluoroscopy time 1 minute and 25 seconds of fluoroscopy provided. IMPRESSION: 1. Fluoroscopy time.
--- NOTE | 2021-04-24 12:08 | XR ---
EXAMINATION TYPE: XR Hip Complete RT DATE OF EXAM: 04/24/2021 COMPARISON: NONE HISTORY: ORIF TECHNIQUE: 4 views submitted FINDINGS: Postsurgical changes seen near anatomic alignment. Hypertrophic arthropathy of the left. IMPRESSION: Postsurgical change.
[2021-04-24] MEDS: SODIUM CHLORIDE 0.9% 1,000 ML IV SCH ×2 (14:20→22:10)
[2021-04-24] MEDS: NICOTINE 14MG/24HR PATCH TRANSDERM SCH (19:44)
[2021-04-24] MEDS: ASPIRIN 325 MG TAB PO SCH (19:44)
[2021-04-24] MEDS ORDERED: ATORVASTATIN 10 MG TAB PO SCH (21:00)
[2021-04-24] MEDS ORDERED: CYCLOBENZAPRINE 10 MG TAB PO SCH (21:00)
[2021-04-24] MEDS ORDERED: SENNOSIDES-DOCUSATE SODIUM 1 EACH TAB PO SCH (21:00)
[2021-04-24] MEDS ORDERED: PANTOPRAZOLE 40 MG TABLET PO SCH (21:00)
[2021-04-24] MEDS: GABAPENTIN 300 MG CAP PO SCH (21:20)
--- NOTE | 2021-04-24 21:55 | P.CONS ---
History of Present Illness - Reason for Consult Consult date: 04/24/21 Medical management Requesting physician: Dillon Finn - Chief Complaint Right hip surgery - History of Present Illness This is a pleasant 66-year-old patient of Dr. Estrada. Chronic stable medical conditions include GERD, hard of hearing from the right ear, hyperlipidemia, osteoarthritis multiple joints, neuropathy, vitiligo. Patient has undergone right total hip arthroplasty. Some numbness around the operative site. No nausea vomiting. No chest pain or shortness of breath. Denies any cardiac history. Pain is reasonably controlled. Review of systems: GEN.: Tired EYES: None HEENT: None NECK: None RESPIRATORY: None CARDIOVASCULAR: None GASTROINTESTINAL: None GENITOURINARY: Urinary incontinence MUSCULOSKELETAL: Joint pains LYMPHATICS: None HEMATOLOGICAL: None PSYCHIATRY: None NEUROLOGICAL: Some area of numbness around the operative site. Past medical history to include: GERD, decreased hearing on the right ear, hyperlipidemia, osteoarthritis, peripheral neuropathy, varicose veins, vitiligo Social history: Smokes half a pack a day for close to 33 years. Alcohol occasionally. Lives with Jamir Family history: Reviewed, noncontributory to presentation Physical examination: VITAL SIGNS: 97.8, 70, 19, 135/78, 99% room air GENERAL: BMI 34.3, declining bed, awake, comfortable. EYES: Pupils equal. Conjunctiva normal. HEENT: External appearance of nose and ears normal, oral cavity grossly normal. NECK: JVD not raised; masses not palpable. HEART: First and second heart sounds are normal; no edema. LUNGS: Respiratory rate normal; clear to auscultation. ABDOMEN: Soft, nontender, liver spleen not palpable, no masses palpable. PSYCH: Alert and oriented x3; mood and affect normal. MUSCULOSKELETAL:No Clubbing/cyanosis;muscles-grossly intact. Dressing over the right hip anteriorly. Evidence of OA no other joints NEUROLOGICAL: Cranial nerves grossly intact; no facial asymmetry, power and sensation grossly intact. LYMPHATICS: No lymph nodes palpable in the axilla and neck INVESTIGATIONS, reviewed in the clinical context: Coronavirus [PCR]: Not detected [Lab work from 04/09/2021] White count 7.6 hemoglobin 15 platelets 268 potassium 4.2 creatinine 0.93 Assessment and plan: -Right total hip arthroplasty for underlying osteoarthritis On aspirin for DVT prophylaxis per Dr. Finn. Pain control in place. Received IV Ancef for infection prophylaxis -GERD Omeprazole 20 mg daily at bedtime -Hard of hearing in the right ear -Hyperlipidemia Zocor 20 mg daily at bedtime -Primary osteoarthritis multiple joints bilaterally Pain medications as needed -Peripheral neuropathy, idiopathic Gabapentin 600 mg twice a day -Obesity BMI 34.3 Weight loss measures. Aspirin for DVT prophylaxis. Pain control in place. Ancef for infection prophylaxis. Home medications resumed. Care was discussed with the patient. Questions answered. Thank you Dr. Finn Past Medical History Past Medical History: GERD/Reflux, Hearing Disorder / Deafness, Hyperlipidemia, Osteoarthritis (OA), Skin Disorder Additional Past Medical History / Comment(s): NEUROPATHY JEROME FEET. VARICOSE VEINS. skin pigmentation-VITILIGO History of Any Multi-Drug Resistant Organisms: MRSA Year Discovered:: 2014 MDRO Source:: LT AXILLA Past Surgical History: Section, Cholecystectomy, Hernia Repair, Hysterectomy, Joint Replacement, Orthopedic Surgery Additional Past Surgical History / Comment(s): C-S X2. JEROME TOTAL KNEES. right knee X2 RT WRIST CARPAL TUNNEL. JEROME BUNION SURG,hernia x2, repair rt knee - replacement, COLONOSCOPY Past Anesthesia/Blood Transfusion Reactions: Motion Sickness, Postoperative Nausea & Vomiting (PONV) Additional Past Anesthesia/Blood Transfusion Reaction / Comm: no hx blood transfusion Past Psychological History: Anxiety Smoking Status: Current every day smoker Past Alcohol Use History: Occasional Additional Past Alcohol Use History / Comment(s): STARTED SMOKING AGE 33, 1/2 PPD. Past Drug Use History: None Reported - Past Family History Mother Family Medical History: No Reported History Medications and Allergies Home Medications Medication Instructions Recorded Confirmed Type [place]-3 Fatty Acids/Fish Oil [Fish 1 cap PO DAILY 09/05/15 04/24/21 History Oil 1,000 mg Softgel] Simvastatin [Zocor] 20 mg PO HS 09/05/15 04/24/21 History Gabapentin 600 mg PO BID 10/10/15 04/24/21 History Ascorbic Acid [Vitamin C] 500 mg PO DAILY 03/12/18 04/24/21 History Cholecalciferol [Vitamin D3 (25 1,000 unit PO DAILY 03/12/18 04/24/21 History Mcg = 1000 Iu)] Omeprazole 20 mg PO HS 03/12/18 04/24/21 History Vitamin E (Dl,Tocopheryl Acet) 400 unit PO DAILY 03/12/18 04/24/21 History [Vitamin E (400 Iu = 180 mg)] Aspirin [Adult Low Dose Aspirin EC] 81 mg PO DAILY 02/29/20 04/24/21 History Acetaminophen-Codeine 300-30mg 1 tab PO QAM PRN 04/18/21 04/24/21 History [Tylenol w/codeine #3] Cyclobenzaprine [Flexeril] 10 mg PO HS 04/18/21 04/24/21 History Aspirin 325 mg PO BID #60 tab 04/24/21 Rx Ondansetron Odt [Zofran Odt] 1 tab PO Q8HR PRN #10 tab 04/24/21 Rx Sennosides [Senokot] 2 tab PO DAILY PRN #60 tablet 04/24/21 Rx traMADol HCl [Ultram] 1 - 2 tab PO Q6H PRN #30 tab 04/24/21 Rx Allergies Allergy/AdvReac Type Severity Reaction Status Date / Time No Known Allergies Allergy Verified 04/24/21 08:34 Physical Exam Vitals: Vital Signs Temp Pulse Pulse Resp BP Pulse Ox 04/24/21 17:45 98.2 F 89 19 124/65 94 L 04/24/21 14:45 97.8 F 70 19 135/78 99 04/24/21 14:01 88 18 163/78 95 04/24/21 13:30 78 18 123/60 96 04/24/21 13:02 81 16 134/73 98 04/24/21 12:31 76 18 155/69 96 04/24/21 12:15 77 18 135/88 96 04/24/21 12:01 73 18 136/65 100 04/24/21 11:46 62 18 128/60 100 04/24/21 11:25 98.1 F 65 14 105/53 96 04/24/21 08:19 97.7 F 81 16 138/62 94 L Intake and Output 04/24/21 04/24/21 04/24/21 06:59 14:59 22:59 Intake Total 1151 Output Total 200 Balance 951 Intake: IV 1151 Output: Estimated Blood Loss 200 Other: # Voids 1 Weight 93.5 kg
[2021-04-25] MEDS: LACTATED RINGERS 1,000 ML IV SCH (01:00)
[2021-04-25 02:57] VITALS: BP 143/78; PULSE 67; RESP 16; TEMP 97.8
[2021-04-25] MEDS: HYDROcodone/APAP 7.5-325MG 1 EACH TAB PO PRN ×2 (06:26→13:17)
[2021-04-25] MEDS ORDERED: ASCORBIC ACID 500 MG TAB PO SCH (09:00)
[2021-04-25] MEDS ORDERED: CHOLECALCIFEROL 25 MCG (1000 IU) TABLET PO SCH (09:00)
[2021-04-25] MEDS ORDERED: MELOXICAM 7.5 MG TAB PO SCH (09:00)
[2021-04-25 09:34] LABS: Basophils # (A) 0.02 X 10*3/uL (0.00-0.10); Basophils % (A) 0.2 %; Eosinophils # (A) 0.01 X 10*3/uL (0.04-0.35); Eosinophils % (A) 0.1 %; HCT 37.9 % (37.2-46.3); HGB 12.2 g/dL (12.0-15.0); Lymphocytes % (A) 19.1 %; MCH 30.8 pg (27.0-32.0); MCHC 32.2 g/dL (32.0-37.0); MCV 95.7 fL (80.0-97.0); Mean Platelet Volume 9.5 fL (9.5-12.2); Monocytes # (A) 1.03 X 10*3/uL (0.20-1.00); Monocytes % (A) 9.8 %; Neutrophils # (A) 7.38 X 10*3/uL (1.80-7.70); Neutrophils % (A) 70.3 %; Platelet Count 210 X 10*3/uL (140-440); RBC 3.96 X 10*6/uL (4.10-5.20); RDW 13.1 % (11.5-14.5); WBC 10.49 X 10*3/uL (4.50-10.00)
[2021-04-25] MEDS: NICOTINE 14MG/24HR PATCH TRANSDERM SCH (10:23)
[2021-04-25] MEDS: GABAPENTIN 300 MG CAP PO SCH (10:23)
[2021-04-25] MEDS: ASPIRIN 325 MG TAB PO SCH (10:23)
--- NOTE | 2021-04-25 11:24 | P.DS ---
Providers Expected date of discharge: 04/25/21 Attending physician: Dillon Finn Consults: 04/24/21 19:46 Consult Physician Routine Consulting Provider: Doug Mohr Consult Reason/Comments: medical management Do you want consulting provider notified?: Already Contacted Primary care physician: Todd Estrada - Discharge Diagnosis(es) (1) Osteoarthritis of right hip Current Visit: Yes Status: Acute (2) S/P total right hip arthroplasty Current Visit: Yes Status: Acute Hospital Course: This is a 66-year-old female who presented to the office with history of severe osteoarthritis of the right hip. After failure of conservative treatment we discussed the surgical and nonsurgical treatment options at length. Patient wishes to proceed with a total hip arthroplasty with a direct anterior approach. Complications specific to this procedure were discussed at length, including but not limited to infection, leg length discrepancy, dislocation, nerve injury, and fracture. Covid-19 was also discussed at length with the patient, and they are aware of the current policies and procedures. The patient was given the option of delaying surgery, but they elect to proceed knowing these risks. Patient is aware of all these complications and informed consent was obtained. The patient is admitted to the [facility] on 04/24/2021 for total right hip arthroplasty with direct anterior approach. The procedure is performed without complication or sequelae. The patient is doing well postoperatively. Vital signs and labs are stable and postoperative day #1. Patient is discharged to home in good condition. Please see med rec for accurate list of home medications. Plan - Discharge Summary Discharge Rx Participant: Yes New Discharge Prescriptions: New Aspirin 325 mg PO BID #60 tab Sennosides [Senokot] 2 tab PO DAILY PRN #60 tablet PRN Reason: Constipation Ondansetron Odt [Zofran Odt] 1 tab PO Q8HR PRN #10 tab PRN Reason: Nausea traMADol HCl [Ultram] 1 - 2 tab PO Q6H PRN #30 tab PRN Reason: Pain No Action Simvastatin [Zocor] 20 mg PO HS [place]-3 Fatty Acids/Fish Oil [Fish Oil 1,000 mg Softgel] 1 cap PO DAILY Gabapentin 600 mg PO BID Vitamin E (Dl,Tocopheryl Acet) [Vitamin E (400 Iu = 180 mg)] 400 unit PO DAILY Cholecalciferol [Vitamin D3 (25 Mcg = 1000 Iu)] 1,000 unit PO DAILY Ascorbic Acid [Vitamin C] 500 mg PO DAILY Omeprazole 20 mg PO HS Aspirin [Adult Low Dose Aspirin EC] 81 mg PO DAILY Acetaminophen-Codeine 300-30mg [Tylenol w/codeine #3] 1 tab PO QAM PRN PRN Reason: Pain Cyclobenzaprine [Flexeril] 10 mg PO HS Discharge Medication List [place]-3 Fatty Acids/Fish Oil [Fish Oil 1,000 mg Softgel] 1 cap PO DAILY 09/05/15 [History] Simvastatin [Zocor] 20 mg PO HS 09/05/15 [History] Gabapentin 600 mg PO BID 10/10/15 [History] Ascorbic Acid [Vitamin C] 500 mg PO DAILY 03/12/18 [History] Cholecalciferol [Vitamin D3 (25 Mcg = 1000 Iu)] 1,000 unit PO DAILY 03/12/18 [History] Omeprazole 20 mg PO HS 03/12/18 [History] Vitamin E (Dl,Tocopheryl Acet) [Vitamin E (400 Iu = 180 mg)] 400 unit PO DAILY 03/12/18 [History] Aspirin [Adult Low Dose Aspirin EC] 81 mg PO DAILY 02/29/20 [History] Acetaminophen-Codeine 300-30mg [Tylenol w/codeine #3] 1 tab PO QAM PRN 04/18/21 [History] Cyclobenzaprine [Flexeril] 10 mg PO HS 04/18/21 [History] Aspirin 325 mg PO BID #60 tab 04/24/21 [Rx] Ondansetron Odt [Zofran Odt] 1 tab PO Q8HR PRN #10 tab 04/24/21 [Rx] Sennosides [Senokot] 2 tab PO DAILY PRN #60 tablet 04/24/21 [Rx] traMADol HCl [Ultram] 1 - 2 tab PO Q6H PRN #30 tab 04/24/21 [Rx] Follow up Appointment(s)/Referral(s): Todd Estrada MD [Primary Care Provider] - 04/27/21 1:00 pm (With [place].) [facility], [NON-STAFF] - ([facility] will call you to schedule your in home physical therapy visits. ) Dillon Finn DO [Doctor of Osteopathic Medicine] - 05/10/21 1:00 pm (With Neda) Patient Instructions/Handouts: How to Choose and Use a Walker (GEN), Anterior Hip Replacement (DC) Activity/Diet/Wound Care/Special Instructions: Weightbearing as tolerated with walker. Leave dressing intact. Dressing may be removed by patient in 7 days. Then change dressing twice daily until follow up. May shower with initial dressing intact and after removal. No Soaking in shower or bathtub. If dressing become saturated, please remove. Please take aspirin 325mg twice daily for 30 days to prevent blood clots. Recommend use of compression stockings daily until follow up to help prevent swelling and blood clots. May remove at night before sleeping. Please follow-up with [facility] in 2 weeks and call with any q uestions or concerns, . Discharge Disposition: HOME WITH HOME HEALTH SERVICES
[2021-04-25] MEDS: SODIUM CHLORIDE 0.9% 1,000 ML IV SCH (13:16)
--- NOTE | 2021-04-25 21:46 | P.PN ---
Progress Note - Text Progress Note Date: 04/25/21 - Chief Complaint Right hip surgery This is a pleasant 66-year-old patient of Dr. Estrada. Chronic stable medical conditions include GERD, hard of hearing from the right ear, hyperlipidemia, osteoarthritis multiple joints, neuropathy, vitiligo. Patient has undergone right total hip arthroplasty. Some numbness around the operative site. No nausea vomiting. No chest pain or shortness of breath. Denies any cardiac history. Pain is reasonably controlled. April 25: Comfortable. Didn't ambulate. Oral intake good. No chest pain or shortness of breath. Care was discussed with the patient. Review of systems: Was done for constitutional, cardiovascular, GI, pulmonary. relevant finding as above Current medications reviewed Past medical history to include: GERD, decreased hearing on the right ear, hyperlipidemia, osteoarthritis, peripheral neuropathy, varicose veins, vitiligo Social history: Smokes half a pack a day for close to 33 years. Alcohol occasionally. Lives with Jamir Family history: Reviewed, noncontributory to presentation Physical examination: VITAL SIGNS: 97.8, 67, 16, 143 with 78, 94% room air GENERAL: Sitting up in chair, awake, comfortable EYES: Pupils equal. Conjunctiva normal. HEENT: External appearance of nose and ears normal, oral cavity grossly normal. NECK: JVD not raised; masses not palpable. HEART: First and second heart sounds are normal; no edema. LUNGS: Respiratory rate normal; clear to auscultation. ABDOMEN: Soft, nontender, liver spleen not palpable, no masses palpable. PSYCH: Alert and oriented x3; mood and affect normal. MUSCULOSKELETAL:No Clubbing/cyanosis;muscles-grossly intact. Dressing over the right hip anteriorly. Evidence of OA no other joints INVESTIGATIONS, reviewed in the clinical context: April 25: Hemoglobin 12.2 Coronavirus [PCR]: Not detected [Lab work from 04/09/2021] White count 7.6 hemoglobin 15 platelets 268 potassium 4.2 creatinine 0.93 Assessment and plan: -Right total hip arthroplasty for underlying osteoarthritis On aspirin for DVT prophylaxis per Dr. Finn. Pain control in place. Received IV Ancef for infection prophylaxis -GERD Omeprazole 20 mg daily at bedtime -Hard of hearing in the right ear -Hyperlipidemia Zocor 20 mg daily at bedtime -Primary osteoarthritis multiple joints bilaterally Pain medications as needed -Peripheral neuropathy, idiopathic Gabapentin 600 mg twice a day -Obesity BMI 34.3 Weight loss measures. Discussed with patient. Follow-up with PCP upon discharge. Thank you Dr. Finn
== END 2021-04-25 14:52 | disposition home health service (06) ==
LOC: OR 08:04 → 4SSUR 11:25 → OR 04-25 14:52
PROVIDERS: ATTEND Orthopaedic Surgery
DX: M16.11 Unilateral primary osteoarthritis, right hip (principal); E78.5 Hyperlipidemia, unspecified; R26.81 Unsteadiness on feet; Z97.3 Presence of spectacles and contact lenses; Z79.82 Long term (current) use of aspirin; Z79.891 Long term (current) use of opiate analgesic; Z79.899 Other long term (current) drug therapy; Z98.890 Other specified postprocedural states; Z87.11 Personal history of peptic ulcer disease; M79.7 Fibromyalgia; K21.9 Gastro-esophageal reflux disease without esophagitis; E55.9 Vitamin D deficiency, unspecified; G56.02 Carpal tunnel syndrome, left upper limb; R41.3 Other amnesia; G47.9 Sleep disorder, unspecified; Z90.49 Acquired absence of other specified parts of digestive tract; Z98.51 Tubal ligation status; Z90.710 Acquired absence of both cervix and uterus; Z96.653 Presence of artificial knee joint, bilateral; Z82.49 Family history of ischemic heart disease and other diseases of the circulatory system; Z83.438 Family history of other disorder of lipoprotein metabolism and other lipidemia; Z82.3 Family history of stroke; Z80.0 Family history of malignant neoplasm of digestive organs
CPT/HCPCS: 97161; 97535; 97165; 86900; 86901; 85025; 86850; 88300; 87635; 73501; 73502; 36415; 27130; C1776; S4990; J1100; J0690 ×3; J2405; J2795; J1170 ×2

== ENCOUNTER 2021-10-15 15:10 | Emergency (ER) | payer MEDICARE ==
[2021-10-15 16:29] VITALS: TEMP 98.2
[2021-10-15] MEDS ORDERED: SODIUM CHLORIDE 0.9% 2,000 ML IV STA (17:21)
[2021-10-15] MEDS ORDERED: MORPHINE SULFATE 4 MG/ML SYRINGE IV STA (17:21)
[2021-10-15] MEDS ORDERED: ONDANSETRON 4 MG/2 ML VIAL IVP STA (17:21)
[2021-10-15 17:47] LABS: Basophils # (A) 0.1 k/uL (0-0.2); Basophils % (A) 1 %; Eosinophils # (A) 0.1 k/uL (0-0.7); Eosinophils % (A) 1 %; HCT 44.2 % (34.0-46.0); HGB 15.1 gm/dL (11.4-16.0); Lymphocytes % (A) 25 %; MCH 32.9 pg (25.0-35.0); MCHC 34.3 g/dL (31.0-37.0); Mean Platelet Volume 6.6; Monocytes # (A) 0.3 k/uL (0-1.0); Monocytes % (A) 4 %; Neutrophils # (A) 5.4 k/uL (1.3-7.7); Neutrophils % (A) 67 %; Platelet Count 299 k/uL (150-450); RDW 14.2 % (11.5-15.5); WBC 8.1 k/uL (3.8-10.6)
[2021-10-15 17:49] LABS: Appearance,Urine Clear (Clear); Bilirubin,Urine Negative (Negative); Blood,Urine Negative (Negative); Color,Urine Yellow; Glucose,Urine (UA) Negative (Negative); Ketones,Urine 1+ (Negative); Leukocyte Esterase,Urine Moderate (Negative); Mucus,Urine Rare /hpf; Nitrite,Urine Negative (Negative); PH, Urine 5.5 (5.0-8.0); Protein,Urine Negative (Negative); RBC,Urine 5 /hpf (0-5); Specific Gravity,Urine 1.021 (1.001-1.035); Squamous Epithelial Cell,Urine 1 /hpf (0-4); Urobilinogen,Urine <2.0 mg/dL (<2.0); WBC,Urine 4 /hpf (0-5)
[2021-10-15 17:58] LABS: Potassium 4.2 mmol/L (3.5-5.1); Total Bilirubin 0.9 mg/dL (0.2-1.3)
[2021-10-15] MEDS ORDERED: HYDROmorphone 0.5 MG/0.5 ML SYRINGE IVP STA (18:49)
--- NOTE | 2021-10-15 19:45 | CT ---
EXAMINATION TYPE: CT abdomen pelvis w con CT DLP: 1575.9 mGycm, Automated exposure control for dose reduction was used. DATE OF EXAM: 10/15/2021 6:46 PM COMPARISON: CT abdomen pelvis from 09/06/2015. CLINICAL INDICATION:Female, 66 years old with history of RLQ pain; RLQ pain into back. Hx patricia TECHNIQUE: Standard CT of the abdomen and pelvis following the administration of 100 cc of Isovue 3 00 IV contrast material. Coronal and sagittal reformats were performed. FINDINGS: LOWER CHEST: Unremarkable ABDOMEN LIVER: Unremarkable GALLBLADDER AND BILE DUCTS: Gallbladder is surgically absent with mild intrahepatic and extra hepatic biliary dilatation likely physiologic and a postcholecystectomy change. No evidence of choledocholit hiasis. PANCREAS: Unremarkable. SPLEEN: Unremarkable. ADRENAL GLANDS: Unremarkable. KIDNEYS AND URETERS: No evidence of hydronephrosis or renal calculus. The ureters are unremarkable. PELVIS Streak artifact from right hip prosthesis limits full aeration pelvis. BLADDER: Unremarkable REPRODUCTIVE: Unremarkable. ABDOMEN & PELVIS Streak artifact from right hip prosthesis limits of the pelvis. STOMACH AND BOWEL: There is a large stool burden throughout the colon. Scattered diverticula are noted throughout the colon. No evidence of bowel obstruction. Appendix is n ormal. PERITONEUM: No evidence of pneumoperitoneum or free fluid. VASCULATURE: No evidence of aortic aneurysm. Mild atherosclerosis of the arterial vasculature. MUSCULOSKELETAL: No acute osseous abnormalities. Multilevel disc degeneration changes are seen throug hout the spine. These are worse at the lower lumbar spine. Grade 1 anterolisthesis of L4 and L5 witho ut spondylolysis. Right hip prosthesis with hardware intact. No evidence of periprosthetic fracture. LYMPH NODES: No gross evidence for lymphadenopathy. SOFT TISSUE/ABDOMINAL WALL: Unremarkable IMPRESSION: 1. No inflammation changes within the right lower quadrant to suggest acute inflammatory process. The re is a large stool burden particularly in the right colon. Appendix is normal. 2. Colonic diverticulosis.
[2021-10-15] MEDS ORDERED: MAGNESIUM CITRATE 296 ML BOTTLE PO ONE (20:01)
--- NOTE | 2021-10-15 20:04 | ED ---
Abdominal Pain HPI - General Chief Complaint: Abdominal Pain Stated Complaint: abd pain Time Seen by Provider: 10/15/21 17:08 Source: patient Mode of arrival: ambulatory Limitations: no limitations - History of Present Illness Initial Comments: Patient is a 66-year-old female with past medical history significant for colitis who presents to the emergency department for evaluation of abdominal pain. Patient describes the pain as severe in the right lower abdomen with radiation to the right side and right lower back. Patient states pain started last night, refractory to Tylenol. Patient states she has been experiencing waves of nausea with the pain without vomiting. Patient denies fever, chills, burning with urination, increased urinary frequency/urgency, and blood in the urine. Denies history of kidney stone and infection. Has history of c holecystectomy and multiple ventral hernia surgeries. Last bowel movement was 2 days ago, - Related Data Home Medications Medication Instructions Recorded Confirmed [place]-3 Fatty Acids/Fish Oil [Fish 1 cap PO DAILY 09/05/15 10/15/21 Oil 1,000 mg Softgel] Simvastatin [Zocor] 20 mg PO HS 09/05/15 10/15/21 Gabapentin 600 mg PO BID 10/10/15 10/15/21 Ascorbic Acid [Vitamin C] 1,000 mg PO DAILY 03/12/18 10/15/21 Omeprazole 20 mg PO HS 03/12/18 10/15/21 Aspirin [Adult Low Dose Aspirin EC] 81 mg PO HS 02/29/20 10/15/21 Acetaminophen-Codeine 300-30mg 1 tab PO BID PRN 04/18/21 10/15/21 [Tylenol w/codeine #3] Cyclobenzaprine [Flexeril] 10 mg PO HS 04/18/21 10/15/21 Beets 500 mg PO DAILY 10/15/21 10/15/21 Cholecalciferol [Vitamin D3 (25 25 mcg PO DAILY 10/15/21 10/15/21 Mcg = 1000 Iu)] Melatonin [Melatonin ER] 10 mg PO HS 10/15/21 10/15/21 Potassium Gluconate [Potassium 99 mg PO DAILY 10/15/21 10/15/21 Gluconate ER] Vitamin B Complex 1 cap PO DAILY 10/15/21 10/15/21 Zinc 50 mg PO DAILY 10/15/21 10/15/21 metHOTREXate sodium [Methotrexate] 12.5 mg PO TH 10/15/21 10/15/21 Allergies Allergy/AdvReac Type Severity Reaction Status Date / Time No Known Allergies Allergy Verified 10/15/21 18:00 Review of Systems ROS Statement: Those systems with pertinent positive or pertinent negative responses have been documented in the HPI. ROS Other: All systems not noted in ROS Statement are negative. Past Medical History Past Medical History: GERD/Reflux, Hearing Disorder / Deafness, Hyperlipidemia, Osteoarthritis (OA), Skin Disorder Additional Past Medical History / Comment(s): NEUROPATHY JEROME FEET. VARICOSE VEINS. skin pigmentation. diarrhea x4 months History of Any Multi-Drug Resistant Organisms: MRSA Date of last positivie culture/infection: 2014 MDRO Source:: LT AXILLA Past Surgical History: Section, Cholecystectomy, Hernia Repair, Hysterectomy, Joint Replacement, Orthopedic Surgery Additional Past Surgical History / Comment(s): C-S X2. JEROME TOTAL KNEES. right knee X2 RT WRIST CARPAL TUNNEL. JEROME BUNION SURG,hernia x2, repair rt knee - replacement, COLONOSCOPY Past Anesthesia/Blood Transfusion Reactions: Motion Sickness, Postoperative Nausea & Vomiting (PONV) Additional Past Anesthesia/Blood Transfusion Reaction / Comment(s): no hx blood transfusion Past Psychological History: Anxiety Smoking Status: Current every day smoker Past Alcohol Use History: Occasional Past Drug Use History: None Reported - Past Family History Mother Family Medical History: No Reported History General Exam Limitations: no limitations General appearance: alert, in no apparent distress Head exam: Present: atraumatic, normocephalic, normal inspection Eye exam: Present: normal appearance, PERRL, EOMI. Absent: scleral icterus, conjunctival injection, periorbital swelling Respiratory exam: Present: normal lung sounds bilaterally. Absent: respiratory distress, wheezes, rales, rhonchi, stridor Cardiovascular Exam: Present: regular rate, normal rhythm, normal heart sounds. Absent: systolic murmur, diastolic murmur, rubs, gallop, clicks GI/Abdominal exam: Present: soft, tenderness (RLQ), normal bowel sounds. Absent: distended, guarding, rebound, rigid Back exam: Present: normal inspection, full ROM, CVA tenderness (R), paraspinal tenderness (right lumbar) Neurological exam: Present: alert, oriented X3, CN II-XII intact Skin exam: Present: warm, dry, intact, normal color. Absent: rash Course Vital Signs 10/15/21 10/15/21 10/15/21 16:27 18:49 20:22 Temperature 98.2 F Pulse Rate 86 76 72 Respiratory 18 18 16 Rate Blood Pressure 119/72 146/84 142/66 O2 Sat by Pulse 96 97 96 Oximetry Medical Decision Making - Medical Decision Making This is a 66-year-old female who presents with right lower quadrant abdominal pain with radiation to the right flank and right lower back. Thorough history and examination were performed. Patient is well-appearing. She is afebrile. Vitals stable. She does not have urinary symptoms. The abdomen is soft. There is moderate tenderness to palpation of the right lower quadrant and the right flank. At this time there is suspicion for acute intra-abdominal process. Pain controlled with morphine and Dilaudid. Laboratory studies obtained and are relatively unremarkable. Urinalysis is not indicated of infection or blood. CT of the abdomen and pelvis with contrast was obtained which showed no inflammation changes within the right lower quadrant to suggest acute infla mmatory process. There is a large stool burden particularly in the right colon with a normal appendix. Results discussed with patient. Patient likely experiencing symptoms due to constipation. She will be discharged with magnesium citrate. Instructions were discussed. Patient educated on high fiber diet and to increase hydration. Patient to follow-up with her primary care provider. Return parameters discussed. Patient verbalizes understanding and is agreeable to this plan. Dr. Cantu is my attending. - Lab Data Result diagrams: 10/15/21 17:37 10/15/21 17:37 Lab Results 10/15/21 10/15/21 10/15/21 Range/Units 17:37 17:37 17:37 WBC 8.1 (3.8-10.6) k/uL RBC 4.60 (3.80-5.40) m/uL Hgb 15.1 (11.4-16.0) gm/dL Hct 44.2 (34.0-46.0) % MCV 96.0 (80.0-100.0) fL MCH 32.9 (25.0-35.0) pg MCHC 34.3 (31.0-37.0) g/dL RDW 14.2 (11.5-15.5) % Plt Count 299 (150-450) k/uL MPV 6.6 Neutrophils % 67 % Lymphocytes % 25 % Monocytes % 4 % Eosinophils % 1 % Basophils % 1 % Neutrophils # 5.4 (1.3-7.7) k/uL Lymphocytes # 2.0 (1.0-4.8) k/uL Monocytes # 0.3 (0-1.0) k/uL Eosinophils # 0.1 (0-0.7) k/uL Basophils # 0.1 (0-0.2) k/uL Sodium 141 (137-145) mmol/L Potassium 4.2 (3.5-5.1) mmol/L Chloride 107 (98-107) mmol/L Carbon Dioxide 23 (22-30) mmol/L Anion Gap 11 mmol/L BUN 21 H (7-17) mg/dL Creatinine 0.92 (0.52-1.04) mg/dL Est GFR (CKD-EPI)AfAm 74 (>60 ml/min/1.73 sqM) Est GFR (CKD-EPI)NonAf 64 (>60 ml/min/1.73 sqM) Glucose 101 H (74-99) mg/dL Calcium 10.0 (8.4-10.2) mg/dL Total Bilirubin 0.9 (0.2-1.3) mg/dL AST 31 (14-36) U/L ALT 40 H (4-34) U/L Alkaline Phosphatase 77 (38-126) U/L Total Protein 8.0 (6.3-8.2) g/dL Albumin 5.0 (3.5-5.0) g/dL Lipase 103 (23-300) U/L Urine Color Yellow Urine Appearance Clear (Clear) Urine pH 5.5 (5.0-8.0) Ur Specific [place] 1.021 (1.001-1.035) Urine Protein Negative (Negative) Urine Glucose (UA) Negative (Negative) Urine Ketones 1+ H (Negative) Urine Blood Negative (Negative) Urine Nitrite Negative (Negative) Urine Bilirubin Negative (Negative) Urine Urobilinogen <2.0 (<2.0) mg/dL Ur Leukocyte Esterase Moderate H (Negative) Urine RBC 5 (0-5) /hpf Urine WBC 4 (0-5) /hpf Ur Squamous Epith Cells 1 (0-4) /hpf Urine Mucus Rare H (None) /hpf Disposition Clinical Impression: Abdominal pain, Constipation Disposition: HOME SELF-CARE Condition: Good Instructions (If sedation given, give patient instructions): Constipation (ED), High Fiber Diet (ED), Abdominal Pain (ED) Additional Instructions: Please drink half of the bottle of magnesium citrate. If you do not have a bowel movement in 4 hours, drink the other half of the bottle. Drinking water will also improve constipation. Follow up with primary care provider in one to 2 days. Return to the emergency department if you experience new, concerning, or worsening symptoms. Is patient prescribed a controlled substance at d/c from ED?: No Referrals: Todd Estrada MD [Primary Care Provider] - 1-2 days Time of Disposition: 20:04
[2021-10-15 20:23] VITALS: BP 142/66; PULSE 72; RESP 16
== END 2021-10-15 20:23 | disposition home or self-care (01) ==
LOC: EC 15:10
DX: K59.00 Constipation, unspecified (principal); R10.31 Right lower quadrant pain; E78.5 Hyperlipidemia, unspecified; K21.9 Gastro-esophageal reflux disease without esophagitis; M19.90 Unspecified osteoarthritis, unspecified site; F41.9 Anxiety disorder, unspecified; F17.200 Nicotine dependence, unspecified, uncomplicated
CPT/HCPCS: 36415; 80053; 83690; 85025; 81001; 74177; 99284; 96374; 96375 ×2; J2270; J2405; J1170; Q9967

== ENCOUNTER → 2022-01-21 | Outpatient (CLI) | payer MEDICARE ==
--- NOTE | 2022-01-21 15:51 | BD ---
EXAMINATION TYPE: Axial Bone Density DATE OF EXAM: 01/21/2022 COMPARISON: PREVIOUS 01-01-19 UNAVAILABLE CLINICAL HISTORY: 66 years year old Female. ICD-10 CODE: M81.0 AGE RELATED OSTEOPOROSIS Height: 64IN Weight: 221LB FRAX RISK QUESTIONS: History of Fracture in Adulthood: YES Secondary Osteoporosis: Current Tobacco Use: YES RISK FACTORS HISTORY OF: Surgery to Hip(right): RTHA When: 2021 Active: YES Postmenopausal woman: YES MEDICATIONS: Additional Medications: CHOLESTEROL MED, MUSCLE RELAXER, NERVE MED, VITAMIN D, REFLUX MED, ARTHRITIS MED Additional History: LT ANKLE FX, JEROME TKA EXAM MEASUREMENTS: Bone mineral densitometry was performed using the [employer] System. Bone mineral density as measured about the Lumbar spine is: ----- L1-L4(G/cm2): 1.479 T Score Values are as follows: ----- L1: 3.1 ----- L2: 1.5 ----- L3: 2.1 ----- L4: 3.1 ----- L1-L4: 2.5 PREVIOUS UNAVAILABLE FOR COMPARISON Bone mineral density about the L hip (g/cm2): 0.983 T Score values are as follows: -----L Neck: -1.1 -----L Total: -0.2 PREVIOUS UNAVAILABLE FRAX%s: The graph provided illustrates a 13% chance for a major osteoporotic fx and a 1.2% chance for the hips probability for fx in 10 years time. IMPRESSION: Osteopenia (T Score between -2.5 and -1). There is slightly increased risk of fracture and the patient may be considered for treatment. Re-Screen 2-5 years. NOTE: T-SCORE=SD OF THE YOUNG ADULT MEAN.
== END | disposition home or self-care (01) ==
LOC: RADBDWWP 14:58
PROVIDERS: ATTEND Internal Medicine Rheumatology
DX: M85.89 Other specified disorders of bone density and structure, multiple sites (principal)
CPT/HCPCS: 77080

== ENCOUNTER 2022-07-12 12:16 | Day surgery (SDC) | payer BC, MEDICARE ==
[~2022-07-12 12:16] MED LIST changes: -ACETAMINOPHEN TAB 500 MG TAB PO PRN; +ALPRAZolam 0.25 MG TAB PO PRN; -DEXAMETHASONE SOD PHOSPHATE 4 MG/ML 1 ML VIAL IV ONE; -GABAPENTIN 300 MG CAP PO PRN; -HYDROcodone/APAP 7.5-325MG 1 EACH TAB PO PRN; -HYDROmorphone 0.2 MG/1 ML SYRINGE IVP PRN; -HYDROmorphone 0.5 MG/0.5 ML SYRINGE IVP PRN; -LIDOCAINE 1% (10MG/ML) FOR IV START INTRADERMA PRN; -MAGNESIUM HYDROXIDE 2,400 MG/10 ML CUP PO PRN; -MELOXICAM 7.5 MG TAB PO PRN; -MIDAZOLAM 2 MG/2 ML VIAL IV PRN; -NALOXONE 0.4 MG/ML 1 ML VIAL IV PRN; -ONDANSETRON 4 MG/2 ML VIAL IVP ONE; -ONDANSETRON 4 MG/2 ML VIAL IVP PRN; -TRANEXAMIC ACID 1,000 MG in SODIUM CHLORIDE 0.9% 100 ML IVPB PRN
[2022-07-12 13:02] VITALS: RESP 18; TEMP 98.1
[2022-07-12 14:48] VITALS: BP 114/64; PULSE 68
--- NOTE | 2022-07-12 17:41 | US ---
ULTRASOUND GUIDED FNA THYROID BIOPSY: CLINICAL HISTORY: Request for 2 right-sided thyroid nodules for FNA biopsy FINDINGS: The procedure was explained to the patient. The risks, complications, benefits and alternatives were discussed and any questions were answered. Informed consent was obtained. Patient was placed supin e on the ultrasound table and prepped and draped in the usual sterile fashion. Utilizing a 25 gauge needle, five passes were made into the 2 requested right-sided thyroid nodule. Patient was stable throughout the procedure. Pathology is pending. All elements of maximal barrier technique were utilized. IMPRESSION: 1. Successful ultrasound guided FNA thyroid biopsy.
== END 2022-07-12 14:40 | disposition home or self-care (01) ==
LOC: RADPROMAIN 12:16
PROVIDERS: ATTEND Otolaryngology
DX: E04.1 Nontoxic single thyroid nodule (principal)
CPT/HCPCS: 10005; 10006; 88173; 88305

== ENCOUNTER → 2022-07-12 | Outpatient (CLI) | payer BC, MEDICARE ==
[2022-07-12 15:15] LABS: Ionized Calcium 5.5 mg/dL (4.5-5.3)
[2022-07-12 15:50] LABS: T4, Free (Free Thyroxine) 1.18 ng/dL (0.78-2.19)
== END | disposition home or self-care (01) ==
LOC: LABWHC1 11:54
PROVIDERS: ATTEND Otolaryngology
DX: L65.9 Nonscarring hair loss, unspecified (principal); R53.83 Other fatigue
CPT/HCPCS: 36415; 82306; 82330; 83970; 84439; 84443; 86376

== ENCOUNTER → 2022-09-25 | Outpatient (CLI) | payer MEDICARE | END | disposition home or self-care (01) | LOC: LABWHC1 11:56 | PROVIDERS: ATTEND Student in an Organized Health Care Education/Training Program | DX: E20.8 Other hypoparathyroidism (principal) | CPT/HCPCS: 36415; 83970 ==

== ENCOUNTER → 2022-11-22 | Outpatient (CLI) | payer MEDICARE | END | disposition home or self-care (01) | LOC: LABWHC1 11:37 | PROVIDERS: ATTEND Internal Medicine | DX: Z01.818 Encounter for other preprocedural examination (principal); C73 Malignant neoplasm of thyroid gland | CPT/HCPCS: 36415; 84443 ==

== ENCOUNTER → 2024-10-04 | Outpatient (CLI) | payer MEDICARE ==
[2024-10-04 12:40] LABS: Partial Thromboplastin Time 23.9 sec (22.0-30.0)
[2024-10-04 14:35] LABS: Prothrombin Time 10.9 sec (10.0-12.5)
[2024-10-04 15:37] LABS: HCT 42.4 % (37.2-46.3); HGB 13.8 g/dL (12.0-15.0); MCH 30.9 pg (27.0-32.0); MCHC 32.5 g/dL (32.0-37.0); MCV 95.1 FL (80.0-97.0); Mean Platelet Volume 9.2 FL (9.5-12.2); NRBC Per 100 WBC 0 X 10*3/uL (0.00-0.01); Platelet Count 221 X 10*3/uL (140-440); RBC 4.46 X 10*6/uL (4.10-5.20); RDW 12.8 % (11.5-14.5)
[2024-10-04 15:38] LABS: ALT 21 U/L (8-44); AST 22 U/L (13-35); Albumin 4.3 g/dL (3.8-4.9); Albumin/Globulin Ratio 1.87 Ratio (1.60-3.17); Alkaline Phosphatase 58 U/L (41-126); BUN/Creat Ratio 17.27 Ratio (12.00-20.00); Carbon Dioxide 23.4 mmol/L (21.6-31.8); Chloride 106 mmol/L (96-109); Globulin 2.3 g/dL (1.6-3.3); Glucose 106 mg/dL (70-110); Potassium 4.3 mmol/L (3.5-5.5); Sodium 141 mmol/L (135-145); Total Bilirubin 0.4 mg/dL (0.3-1.2); Total Protein 6.6 g/dL (6.2-8.2)
== END | disposition home or self-care (01) ==
LOC: LABPAT 10:53
PROVIDERS: ATTEND Orthopaedic Surgery
DX: Z01.818 Encounter for other preprocedural examination (principal); M16.12 Unilateral primary osteoarthritis, left hip; Z22.322 Carrier or suspected carrier of Methicillin resistant Staphylococcus aureus
CPT/HCPCS: 80053; 85027; 85610; 85730; 86850; 86900; 86901; 87070; 93005

== ENCOUNTER 2024-10-12 09:30 | Day surgery (SDC) | payer MEDICARE, OTHER ==
[~2024-10-12 09:30] MED LIST changes: +ACETAMINOPHEN TAB 500 MG TAB PO PRN; -ALPRAZolam 0.25 MG TAB PO PRN; +GABAPENTIN 300 MG CAP PO PRN; +TRANEXAMIC 1,000 MG/100ML-NACL 1,000 MG in SALINE 1 100ML.BAG IVPB PRN
[2024-10-12] MEDS: MELOXICAM 7.5 MG TAB PO PRN (09:52)
[2024-10-12] MEDS: IV FLUID CONTINUATION 1,000 ML IV ONE ×2 (09:57→15:37)
[2024-10-12] MEDS: ONDANSETRON 4 MG/2 ML VIAL IVP ONE (10:11)
[2024-10-12] MEDS: DEXAMETHASONE SOD PHOSPHATE 4 MG/ML 1 ML VIAL IV ONE (10:11)
[2024-10-12] MEDS: LACTATED RINGERS 1,000 ML IV SCH (10:14)
[2024-10-12] MEDS: MIDAZOLAM 2 MG/2 ML VIAL IV PRN (10:22)
--- NOTE | 2024-10-12 10:29 | P.ANPRN ---
Procedure Note - Anesthesia - Nerve Block Performed Left Yaya Single Time Out Performed: Yes Date of Procedure: 10/12/24 Procedure Start Time: : Procedure Stop Time: : Location of Patient: PreOp Indication: Acute Post-Operative Pain, Analgesia, Requested by Surgeon Sedation Type: Sedate with meaningful contact maintained Preparation: Sterile Prep Position: Supine Catheter: None Needle Types: Pajunk Needle Gauge: 21 Ultrasound used to visualize needle placement: Yes Ultrasound used to observe medication spread: Yes Injectate: 0.5% Ropivacaine (see comment for volume) ([id number]) Blood Aspirated: No Pain Paresthesia on Injection Noted: No Resistance on Injection: Normal Image Stored and Saved: Yes Events: Uneventful and Well Tolerated
[2024-10-12] MEDS ORDERED: MAGNESIUM HYDROXIDE 2,400 MG/30 ML CUP PO PRN (11:04)
[2024-10-12] MEDS ORDERED: NALOXONE 0.4 MG/ML 1 ML VIAL IV PRN (11:04)
[2024-10-12] MEDS ORDERED: HYDROmorphone 0.5 MG/0.5 ML SYRINGE IVP PRN ×2 (11:04)
[2024-10-12] MEDS ORDERED: ONDANSETRON 4 MG/2 ML VIAL IVP PRN (11:04)
[2024-10-12] MEDS ORDERED: HYDROcodone/APAP 7.5-325MG 1 EACH TAB PO PRN (11:06)
[2024-10-12] MEDS ORDERED: DEXAMETHASONE SOD PHOSPHATE 4 MG/ML 1 ML VIAL ONE (11:14)
[2024-10-12] MEDS ORDERED: ROPIVACAINE 5 MG/ML 30 ML VIAL ONE (11:14)
[2024-10-12] MEDS ORDERED: PROPOFOL 10 MG/ML 20 ML VIAL IV ONE (11:14)
[2024-10-12] MEDS ORDERED: TRANEXAMIC 1,000 MG/100ML-NACL PREMIX BAG ONE (11:14)
[2024-10-12] MEDS ORDERED: MIDAZOLAM 2 MG/2 ML VIAL ONE (11:14)
[2024-10-12] MEDS: LACTATED RINGERS 1,000 ML IV ONE (12:08)
[2024-10-12] MEDS: ROPIVACAINE 5 MG/ML 30 ML VIAL MISCELLANE ONE (12:24)
--- NOTE | 2024-10-12 12:34 | P.OP ---
Date of Procedure: 10/12/24 Preoperative Diagnosis: Severe osteoarthritis left hip Postoperative Diagnosis: Severe osteoarthritis left hip Procedure(s) Performed: Left total hip arthroplasty with a direct anterior approach Implants: [employer] Polarstem standard size 2 with a collar [employer] R3, 3 hole hemispherical acetabular shell, 52 mm [employer] Reflection 6.5 mm cancellus screw, 20 mm 2 [employer] R3, XLPE 20 acetabular liner [employer] Oxinium femoral head 36 mm, +0 All components were press-fit. The articulation is Oxinium on polyethylene. Anesthesia: spinal Surgeon: Dillon Finn Judo Teacher #1: Neda Balbuena Estimated Blood Loss (ml): 350 Pathology: none sent Condition: stable Disposition: PACU Indications for Procedure: After failure of conservative treatment we discussed the surgical and nonsurgical treatment options at length. Patient wishes to proceed with a total hip arthroplasty with a direct anterior approach. Complications specific to this procedure were discussed at length, including but not limited to infection, leg length discrepancy, dislocation, nerve injury, and fracture. Covid-19 was also discussed at length with the patient, and they are aware of the current policies and procedures. The patient was given the option of delaying surgery, but they elect to proceed knowing these risks. Patient is aware of all these complications and informed consent was obtained Operative Findings: The operative findings are consistent with severe osteoarthritis of the left hip Description of Procedure: The patient was seen and evaluated in the preoperative area and the consent was reviewed. The operative site was marked with a skin marker. The patient verified the procedure and operative site. A RUTH ANN block was placed by anesthesia in the preoperative area. The patient was then brought to the operating room and given preoperative antibiotics intravenously. 1 g of Tranexamic acid was also given intravenously. A spinal anesthetic was administered by the anesthesia department. The patient was then placed on the [place] table with the bony prominences well-padded. The hip area was then prepped with a ChloraPrep solution and draped in the usual sterile fashion. A universal timeout was then performed, which confirmed the patient's name, surgical site, ALLERGIES, and procedure being performed on the consent. Next the incision site was located at 1 cm distal and 4 cm lateral to the anterior superior iliac spine. The skin and subcutaneous tissues were sharply incised. Incision was carefully dissected down to the fascia overlying the tensor fascia lillian muscle. This fascia was then incised in line with the muscle fibers. Care was taken to stay laterally in order to avoid injuring the lateral femoral cutaneous nerve. Next, using blunt finger dissection, the tensor fascia lillian muscle was dissected off its investing fascia. The muscle was then carefully retracted laterally with a cobra retractor over the lateral neck of the femur. Next, the circumflex vessels were identified and cauterized using the Aquamantis device. The anterior hip capsule was then exposed. The capsule was then opened and an inverted T fashion. The retractors were then placed intracapsularly. The retractors were maintained intracapsular throughout the procedure. The proximal femur was then visualized. Fluoroscopic x-rays were then taken in order to evaluate the preoperative leg lengths. A small amount of traction was placed on the leg. The femoral neck was then osteotomized at the appropriate level above the lesser trochanter. A small wedge of bone was then removed from the remaining femoral head. Next, using a corkscrew the femoral head was removed from the acetabulum. On gross visual inspection, the femoral head had complete loss of articular cartilage and multiple periarticular osteophytes. The femoral head was then measured. Attention was then turned to the acetabulum. The acetabulum was exposed and any remaining labrum was excised. Sequential reaming of the acetabulum was performed using fluoroscopic guidance until there was a good bed of bleeding cancellus bone. When the appropriate size was reached, a trial was then placed. The position and fit of the trial was checked with fluoroscopy. The trial was then removed. Then, using fluoroscopic guidance, the final implant was impacted at 20 of anteversion and 40 of abduction, and fully seated in the acetabulum. 2 screws were then placed in the acetabulum. Again fluoroscopy was used to check position of the screws. Next, the liner was then impacted, with a 20 elevated liner located in the anterior superior quadrant. Component locking was confirmed. Attention was then directed to the femur. With the aid of the [place] table, the femur was externally rotated to approximately 130, extended, and adducted under the opposite leg. A side hook was then placed under the proximal femur, and the side hook elevator was used to elevate the proximal femur while releasing the capsule. Retractors were then placed. A capsular release was performed, as well as a release of the conjoined tendon, which afforded excellent visualization of the proximal femur. Next, a box osteotome was used to lateralize the proximal femur. A brick handler was then used to locate the femoral canal. Sequential broaching was then performed with appropriate size which afforded excellent fixation in the proximal femur. A trial was then placed with appropriate head and neck, and the hip was gently reduced with the aid of the [place] table. Fluoroscopy was then used to check position of the components, as well as to evaluate the leg lengths and offset. The leg lengths and offset were measured as closely as possible to ensure stability of the hip. The hip was then gently dislocated and the trials were then removed. Final implants were then impacted and the hip was again reduced. Final fluoroscopic x-rays confirmed that the components were in anatomic position. The leg lengths and offset were measured and were found to coincide with the trial measurements. The hip was also taken through range of motion, and found to be stable. The hip was then copiously irrigated with antibiotic solution with pulsatile lavage. The hip was then irrigated with Irrisept solution. The soft tissues were then injected with a ropivacaine solution. A second dose of 1 g of Tranexamic acid was also given intravenously. The fascia was then closed with 2-0 strata fix suture. The subcutaneous tissue was closed with 3-0 Vicryl. The subcuticular tissue was closed with 3-0 strata fix suture. The skin was then closed with Exofin skin glue. After the glue and dried, and Optifoam silver impregnated dressing was applied. The patient was then transferred to the recovery room in stable condition. The assistant boys track coach MAN De La Cruz was required due to the complexity of surgery, and the need for skilled business banking sales assistant for positioning, draping, exposure, retraction, and closure of the wound.
--- NOTE | 2024-10-12 12:45 | XR ---
EXAMINATION TYPE: XR Hip Limited LT, FL guidance operating room Intraoperative/procedural fluoroscopi c services were provided. CLINICAL INDICATION:Female, 69 years old with history of LEFT ANTERIOR HIP; , [facility] FINDINGS: Post left hip arthroplasty changes. Hardware appears intact with appropriate alignment. Prior right h ip arthroplasty changes. No radiographic evidence for complication. Total fluoroscopy time is 25 seconds. DAP: 1.3901 Gycm2 Please see the operative/procedural note for further details. [facility], , 10/12/2024 12:43 PM
--- NOTE | 2024-10-12 13:29 | XR ---
EXAMINATION TYPE: XR Hip Limited LT DATE OF EXAM: 10/12/2024 1:22 PM INDICATION: Patient age:Female; 69 years old; Reason for study: Status post hip surgery, assess surgical alignment; PHH. pain COMPARISON: Fluoroscopic images of the left hip of the same date. TECHNIQUE: The left hip was examined in single frontal projection. FINDINGS: Postsurgical changes from left hip arthroplasty. Hardware appears intact with appropriate a lignment. There is some trace surrounding gas and edema which is expected. No acute fracture or dislo cation. IMPRESSION: Postsurgical changes from left hip arthroplasty. Hardware appears intact with appropriate alignment. [facility], , 10/12/2024 1:26 PM
[2024-10-12] MEDS: HYDROmorphone 0.5 MG/0.5 ML SYRINGE IVP PRN (13:40)
[2024-10-12] MEDS: fentaNYL (PF) 50 MCG/ML 2 ML AMP IVP STA (14:50)
[2024-10-12] MEDS: SODIUM CHLORIDE 0.9% 1,000 ML IV SCH (15:37)
[2024-10-12] MEDS: HYDROcodone/APAP 7.5-325MG 1 EACH TAB PO PRN (18:02)
[2024-10-12 20:12] LABS: Glucose,Whole Blood 195 mg/dL (70-110)
--- NOTE | 2024-10-12 20:57 | P.CONS ---
History of Present Illness - Reason for Consult Consult date: 10/12/24 Medical management Requesting physician: Dillon Finn - Chief Complaint Left hip surgery - History of Present Illness This is a very pleasant 69-year-old patient follows Dr. Biswas. Chronic medical condition include GERD, hard of hearing, hyperlipidemia, varicose veins, peripheral neuropathy,. History of thyroid cancer treated with radioactive iodine and surgery. Patient is a smoker doing half a pack a day. Denies any short of breath. Denies any coronary artery disease. Chronic vitiligo Patient has undergone left total hip arthroplasty. Pain is reasonable. No nausea vomiting. Review of systems: GEN.: None EYES: None HEENT: None NECK: None RESPIRATORY: None CARDIOVASCULAR: None GASTROINTESTINAL: None GENITOURINARY: None MUSCULOSKELETAL: [Joint pains LYMPHATICS: None HEMATOLOGICAL: None PSYCHIATRY: None NEUROLOGICAL: None Social history: Smokes half a pack a day for about 36 years. Lives with her boyfriend Jamir Physical examination: VITAL SIGNS: 97.8, 82, 17, 141 x 73, 94% room air GENERAL: BMI 37.8, resting bed awake comfortable. EYES: Pupils equal. Conjunctiva naomie l. HEENT: External appearance of nose and ears normal, oral cavity grossly normal. NECK: JVD not raised; masses not palpable. HEART: First and second heart sounds are normal; no edema. LUNGS: Respiratory rate normal; diminished breath sounds. ABDOMEN: Soft, nontender, liver spleen not palpable, no masses palpable. PSYCH: Alert and oriented x3; mood and affect naomie l. MUSCULOSKELETAL:No Clubbing/cyanosis;muscles-grossly intact. Dressing of the left hip incision site NEUROLOGICAL: Cranial nerves grossly intact; no facial asymmetry, power and sensation grossly intact. LYMPHATICS: No lymph nodes palpable in the axilla and neck INVESTIGATIONS, reviewed in the clinical context: October 04, 2024 white count 5.9 hemoglobin 13.8 platelets 221 sodium 141 potassium 4.3 creatinine 1.1 Assessment plan: - Left total hip arthroplasty Pain controlled. IV cefazolin for infection prophylaxis. 1 dose of Decadron. Aspirin for DVT prophylaxis -GERD PPI - Hard of hearing - Hyperlipidemia Zocor - Primary osteoarthritis Pain medications needed - Peripheral neuropathy Gabapentin - Varicose veins - Hypothyroid following history of thyroid cancer treated with radioactive iodine and surgery Synthroid - Chronic nicotine dependence cigarette smoker Nicotine dependence - Obesity BMI 37.8 Weight loss measures Discussed with patient. Thank you Dr Finn Past Medical History Past Medical History: Cancer, GERD/Reflux, Hearing Disorder / Deafness, Hyperlipidemia, Osteoarthritis (OA), Skin Disorder, Thyroid Disorder Additional Past Medical History / Comment(s): NEUROPATHY JEROME FEET. VARICOSE VEINS. skin pigmentation. hx. thyroid cancer 2 yrs. ago-had surgery & radioactive iodine tx. History of Any Multi-Drug Resistant Organisms: MRSA Year Discovered:: 2014 MDRO Source:: LT AXILLA Past Surgical History: Section, Cholecystectomy, Hernia Repair, Hysterectomy, Joint Replacement, Orthopedic Surgery Additional Past Surgical History / Comment(s): C-S X2. JEROME TOTAL KNEES. right knee X2, RT WRIST CARPAL TUNNEL. JEROME BUNION SURG, hernia x2, COLONOSCOPY, RIGHT HIP replaced, total thyroidectomy Past Anesthesia/Blood Transfusion Reactions: Motion Sickness, Postoperative Nausea & Vomiting (PONV) Additional Past Anesthesia/Blood Transfusion Reaction / Comm: no hx blood transfusion, had severe migraine after thyroid surg. which had never happened before Past Psychological History: Anxiety Smoking Status: Current every day smoker Past Alcohol Use History: Rare Additional Past Alcohol Use History / Comment(s): STARTED SMOKING AGE 33, <1/2 PPD. Past Drug Use History: None Reported - Past Family History Mother Family Medical History: No Reported History Medications and Allergies Home Medications Medication Instructions Recorded Confirmed Type [place]-3 Fatty Acids/Fish Oil [Fish 1 cap PO DAILY 09/05/15 10/07/24 History Oil 1,000 mg Softgel] Simvastatin [Zocor] 20 mg PO HS 09/05/15 10/07/24 History Gabapentin 600 mg PO BID 10/10/15 10/07/24 History Ascorbic Acid [Vitamin C] 1,000 mg PO DAILY 03/12/18 10/07/24 History Omeprazole 20 mg PO BID 03/12/18 10/07/24 History Aspirin [Adult Low Dose Aspirin EC] 81 mg PO HS 02/29/20 10/07/24 History Acetaminophen-Codeine 300-30mg 1 tab PO BID PRN 04/18/21 10/07/24 History [Tylenol w/codeine #3] Cyclobenzaprine [Flexeril] 10 mg PO HS 04/18/21 10/07/24 History Beets 500 mg PO DAILY 10/15/21 10/07/24 History Cholecalciferol [Vitamin D3 (25 25 mcg PO DAILY 10/15/21 10/07/24 History Mcg = 1000 Iu)] Potassium Gluconate [Potassium 99 mg PO DAILY 10/15/21 10/07/24 History Gluconate ER] Vitamin B Complex 1 cap PO DAILY 10/15/21 10/07/24 History Zinc 50 mg PO DAILY 10/15/21 10/07/24 History Levothyroxine Sodium [Synthroid] 1.5 tab PO DENNEY 10/07/24 10/07/24 History Levothyroxine Sodium [Synthroid] 175 mcg PO MOTUWETHFRSA 10/07/24 10/07/24 History Meloxicam [Mobic] 15 mg PO DAILY 10/07/24 10/07/24 History buPROPion XL [Wellbutrin XL] 150 mg PO DAILY 10/07/24 10/07/24 History Aspirin 325 mg PO BID #60 tab 10/12/24 Rx HYDROcodone/APAP 7.5-325MG [[place] 1 - 2 tab PO Q6H PRN #32 tab 10/12/24 Rx 7.5-325] Sennosides [Senokot] 2 tab PO DAILY PRN #60 tablet 10/12/24 Rx Allergies Allergy/AdvReac Type Severity Reaction Status Date / Time No Known Allergies Allergy Verified 10/07/24 11:05 Physical Exam Vitals: Vital Signs Temp Pulse Pulse Pulse Resp BP Pulse Ox 10/12/24 18:48 97.8 F 82 17 141/73 94 L 10/12/24 18:11 79 133/65 90 L 10/12/24 17:55 74 136/76 94 L 10/12/24 17:39 88 124/81 94 L 10/12/24 17:26 84 128/75 91 L 10/12/24 17:09 80 126/69 93 L 10/12/24 16:30 67 18 144/62 95 10/12/24 16:15 75 16 139/74 92 L 10/12/24 16:00 68 18 132/57 93 L 10/12/24 15:45 70 16 137/70 92 L 10/12/24 15:30 80 16 136/83 95 10/12/24 15:15 69 14 140/60 94 L 10/12/24 15:00 77 14 151/58 95 10/12/24 14:45 75 16 141/58 93 L 10/12/24 14:30 78 18 143/66 94 L 10/12/24 14:15 67 16 128/65 97 10/12/24 14:00 69 16 141/50 95 10/12/24 13:45 70 16 138/62 96 10/12/24 13:39 76 16 122/101 97 10/12/24 13:24 60 16 121/70 100 10/12/24 13:09 62 14 113/67 99 10/12/24 12:54 97 F L 65 16 114/55 99 10/12/24 10:39 73 16 148/64 98 10/12/24 10:31 73 16 146/67 97 10/12/24 10:15 97 F L 77 16 137/75 99 Intake and Output 10/12/24 10/12/24 10/12/24 06:59 14:59 22:59 Intake Total 1950 50 Output Total 350 Balance 1600 50 Intake: IV 1950 50 Output: Estimated Blood Loss 350 Other: # Voids 1 Weight 102.965 kg Results Labs: Abnormal Lab Results - Last 24 Hours (Table) 10/12/24 Range/Units 20:10 POC Glucose (mg/dL) 195 H (70-110) mg/dL
[2024-10-12] MEDS: CYCLOBENZAPRINE 10 MG TAB PO SCH (21:51)
[2024-10-12] MEDS: ATORVASTATIN 10 MG TAB PO SCH (21:51)
[2024-10-12] MEDS: SENNOSIDES-DOCUSATE SODIUM 1 EACH TAB PO SCH (21:51)
[2024-10-12] MEDS: ASPIRIN 325 MG TAB PO SCH (21:51)
[2024-10-12] MEDS: GABAPENTIN 300 MG CAP PO SCH (21:52)
[2024-10-12] MEDS: NICOTINE 14MG/24HR PATCH TRANSDERM SCH (21:52)
[2024-10-13 01:34] VITALS: TEMP 98
[2024-10-13] MEDS: HYDROmorphone 0.5 MG/0.5 ML SYRINGE IVP PRN (06:04)
[2024-10-13] MEDS: PANTOPRAZOLE 40 MG TABLET PO SCH (06:05)
[2024-10-13] MEDS: LEVOTHYROXINE 88 MCG TAB PO SCH (06:05)
[2024-10-13 07:46] VITALS: BP 122/75; PULSE 66; RESP 16
[2024-10-13 08:02] LABS: Basophils # (A) 0.01 X 10*3/uL (0.00-0.10); Basophils % (A) 0.1 %; Eosinophils # (A) 0 X 10*3/uL (0.04-0.35); Eosinophils % (A) 0 %; HCT 37.7 % (37.2-46.3); HGB 12.4 g/dL (12.0-15.0); Immature Grans, Automated 0.40 %; Lymphocytes # (A) 1.16 X 10*3/uL (0.90-5.00); Lymphocytes % (A) 10.3 %; MCH 31.0 pg (27.0-32.0); MCHC 32.9 g/dL (32.0-37.0); MCV 94.3 FL (80.0-97.0); Monocytes # (A) 0.82 X 10*3/uL (0.20-1.00); Monocytes % (A) 7.3 %; NRBC Per 100 WBC 0 X 10*3/uL (0.00-0.01); Neutrophils # (A) 9.19 X 10*3/uL (1.80-7.70); Neutrophils % (A) 81.9 %; Platelet Count 224 X 10*3/uL (140-440); RBC 4.00 X 10*6/uL (4.10-5.20); RDW 12.6 % (11.5-14.5); WBC 11.22 X 10*3/uL (4.50-10.00)
[2024-10-13] MEDS: ASCORBIC ACID 500 MG TAB PO SCH (10:03)
[2024-10-13] MEDS: buPROPion XL 150 MG TAB.ER.24H PO SCH (10:04)
[2024-10-13] MEDS: FOLIC ACID-VIT B COMPLEX-VIT C 1 CAP PO SCH (10:04)
--- NOTE | 2024-10-13 11:01 | P.DS ---
Providers Expected date of discharge: 10/13/24 Attending physician: Dillon Finn Consults: 10/12/24 11:04 Consult Physician Routine Consulting Provider: Doug Mohr Consult Reason/Comments: medical management Do you want consulting provider notified?: Yes Primary care physician: Todd Estrada - Discharge Diagnosis(es) (1) Osteoarthritis of left hip Current Visit: Yes Status: Acute (2) S/P total left hip arthroplasty Current Visit: Yes Status: Acute Hospital Course: This is a 69-year-old female with known history of degenerative arthritis of the left hip. The patient presented for evaluation as an outpatient. After discussion and consideration patient elects to proceed with total hip arthroplasty. The patient is seen preoperatively by Dr. Finn and medically cleared for surgery by their primary care physician. Patient is admitted to [facility] on 10/12/2024 for total hip arthroplasty. The procedure is performed without complication or sequelae. The patient is doing well postoperatively. Labs and vital signs are stable on day of discharge. On day of discharge patient's hip incision is healing well. There is minimal erythema. There is no drainage noted at this time. There is minimal soft tissue swelling to the hip and thigh. Patient has full foot and ankle motion without difficulty or pain. Calf is soft and nontender to palpation. Neurovascular status to the left lower extremity is intact. Patient is discharged home in good condition. Please see med rec for accurate list of home medications. Plan - Discharge Summary Discharge Rx Participant: Yes New Discharge Prescriptions: New Aspirin 325 mg PO BID #60 tab HYDROcodone/APAP 7.5-325MG [[place] 7.5-325] 1 - 2 tab PO Q6H PRN #32 tab PRN Reason: Pain Sennosides [Senokot] 2 tab PO DAILY PRN #60 tablet PRN Reason: Constipation No Action Simvastatin [Zocor] 20 mg PO HS [place]-3 Fatty Acids/Fish Oil [Fish Oil 1,000 mg Softgel] 1 cap PO DAILY Gabapentin 600 mg PO BID Ascorbic Acid [Vitamin C] 1,000 mg PO DAILY Omeprazole 20 mg PO BID Aspirin [Adult Low Dose Aspirin EC] 81 mg PO HS Acetaminophen-Codeine 300-30mg [Tylenol w/codeine #3] 1 tab PO BID PRN PRN Reason: Pain Potassium Gluconate [Potassium Gluconate ER] 99 mg PO DAILY Cholecalciferol [Vitamin D3 (25 Mcg = 1000 Iu)] 25 mcg PO DAILY Beets 500 mg PO DAILY buPROPion XL [Wellbutrin XL] 150 mg PO DAILY Cyclobenzaprine [Flexeril] 10 mg PO HS Vitamin B Complex 1 cap PO DAILY Zinc 50 mg PO DAILY Levothyroxine Sodium [Synthroid] 175 mcg PO MOTUWETHFRSA Meloxicam [Mobic] 15 mg PO DAILY Levothyroxine Sodium [Synthroid] 1.5 tab PO DENNEY Discharge Medication List [place]-3 Fatty Acids/Fish Oil [Fish Oil 1,000 mg Softgel] 1 cap PO DAILY 09/05/15 [History] Simvastatin [Zocor] 20 mg PO HS 09/05/15 [History] Gabapentin 600 mg PO BID 10/10/15 [History] Ascorbic Acid [Vitamin C] 1,000 mg PO DAILY 03/12/18 [History] Omeprazole 20 mg PO BID 03/12/18 [History] Aspirin [Adult Low Dose Aspirin EC] 81 mg PO HS 02/29/20 [History] Acetaminophen-Codeine 300-30mg [Tylenol w/codeine #3] 1 tab PO BID PRN 04/18/21 [History] Cyclobenzaprine [Flexeril] 10 mg PO HS 04/18/21 [History] Beets 500 mg PO DAILY 10/15/21 [History] Cholecalciferol [Vitamin D3 (25 Mcg = 1000 Iu)] 25 mcg PO DAILY 10/15/21 [His tory] Potassium Gluconate [Potassium Gluconate ER] 99 mg PO DAILY 10/15/21 [History] Vitamin B Complex 1 cap PO DAILY 10/15/21 [History] Zinc 50 mg PO DAILY 10/15/21 [History] Levothyroxine Sodium [Synthroid] 1.5 tab PO DENNEY 10/07/24 [History] Levothyroxine Sodium [Synthroid] 175 mcg PO MOTUWETHFRSA 10/07/24 [History] Meloxicam [Mobic] 15 mg PO DAILY 10/07/24 [History] buPROPion XL [Wellbutrin XL] 150 mg PO DAILY 10/07/24 [History] Aspirin 325 mg PO BID #60 tab 10/12/24 [Rx] HYDROcodone/APAP 7.5-325MG [[place] 7.5-325] 1 - 2 tab PO Q6H PRN #32 tab 10/12/24 [Rx] Sennosides [Senokot] 2 tab PO DAILY PRN #60 tablet 10/12/24 [Rx] Follow up Appointment(s)/Referral(s): [facility], [NON-STAFF] - 1-2 Days ([facility] will call you to schedule your in home physical therapy visits. ) Dillon Finn DO [Doctor of Osteopathic Medicine] - 10/27/24 1:00 pm Activity/Diet/Wound Care/Special Instructions: Weightbearing as tolerated with walker. Leave dressing intact. Dressing may be removed by home care nurse or by patient in 7 days. Then change dressing twice daily until follow up. May shower with initial dressing intact and after removal. If dressing become saturated, please remove. Please take aspirin 325mg twice daily for 30 days to prevent blood clots. Recommend use of compression stockings daily until follow up to help prevent swelling and blood clots. May remove at night before sleeping. Please follow-up with [facility] in 2 weeks and call with any questions or concerns, . Discharge Disposition: HOME WITH HOME HEALTH SERVICES
--- NOTE | 2024-10-13 17:34 | P.PN ---
Progress Note - Text Progress Note Date: 10/13/24 - Chief Complaint Left hip surgery - History of Present Illness This is a very pleasant 69-year-old patient follows Dr. Biswas. Chronic medical condition include GERD, hard of hearing, hyperlipidemia, varicose veins, peripheral neuropathy,. History of thyroid cancer treated with radioactive iodine and surgery. Patient is a smoker doing half a pack a day. Denies any short of breath. Denies any coronary artery disease. Chronic vit iligo Patient has undergone left total hip arthroplasty. Pain is reasonable. No nausea vomiting. October 13: Some pain at operative site. Did tolerate some diet. No nausea vomiting. No chest pain Social history: Smokes half a pack a day for about 36 years. Lives with her boyfriend Jamir Physical examination: VITAL SIGNS: 98, 66, 16, 122 x 75, 93% room air GENERAL: BMI 37.8, r up in the chair.. Scattered vitiligo scattered EYES: Pupils equal. Conjunctiva naomie l. HEENT: External appearance of nose and ears normal, oral cavity grossly normal. NECK: JVD not raised; masses not palpable. HEART: First and second heart sounds are normal; no edema. LUNGS: Respiratory rate normal; diminished breath sounds. ABDOMEN: Soft, nontender, liver spleen not palpable, no masses palpable. PSYCH: Alert and oriented x3; mood and affect naomie l. MUSCULOSKELETAL:No Clubbing/cyanosis;muscles-grossly intact. Dressing of the left hip incision site INVESTIGATIONS, reviewed in the clinical context: October 13: White count 11.2 hemoglobin 12.4 platelets 224 October 04, 2024 white count 5.9 hemoglobin 13.8 platelets 221 sodium 141 potassium 4.3 creatinine 1.1 Assessment plan: - Left total hip arthroplasty Pain controlled. IV cefazolin for infection prophylaxis. 1 dose of Decadron. Aspirin for DVT prophylaxis -GERD PPI - Hard of hearing - Mild leukocytosis, likely reactive from surgery No evidence of urinary or respiratory symptoms - Hyperlipidemia Zocor - Chronic vitiligo - Primary osteoarthritis Pain medications needed - Peripheral neuropathy Gabapentin - Varicose veins - Hypothyroid following history of thyroid cancer treated with radioactive iodine and surgery Synthroid - Chronic nicotine dependence cigarette smoker Nicotine dependence - Obesity BMI 37.8 Weight loss measures Discussed with patient. at the bedside. Follow-up with PCP upon discharge Thank you Dr Finn Past Medical History Past Medical History: Cancer, GERD/Reflux, Hearing Disorder / Deafness, Hyperlipidemia, Osteoarthritis (OA), Skin Disorder, Thyroid Disorder Additional Past Medical History / Comment(s): NEUROPATHY JEROME FEET. VARICOSE VEINS. skin pigmentation. hx. thyroid cancer 2 yrs. ago-had surgery & radioactive iodine tx. History of Any Multi-Drug Resistant Organisms: MRSA Year Discovered:: 2014 MDRO Source:: LT AXILLA Past Surgical History: Section, Cholecystectomy, Hernia Repair, Hyster ectomy, Joint Replacement, Orthopedic Surgery Additional Past Surgical History / Comment(s): C-S X2. JEROME TOTAL KNEES. right knee X2, RT WRIST CARPAL TUNNEL. JEROME BUNION SURG, hernia x2, COLONOSCOPY, RIGHT HIP replaced, total thyroidectomy Past Anesthesia/Blood Transfusion Reactions: Motion Sickness, Postoperative Nausea & Vomiting (PONV) Additional Past Anesthesia/Blood Transfusion Reaction / Comm: no hx blood transfusion, had severe migraine after thyroid surg. which had never happened before Past Psychological History: Anxiety Smoking Status: Current every day smoker Past Alcohol Use History: Rare Additional Past Alcohol Use History / Comment(s): STARTED SMOKING AGE 33, <1/2 PPD. Past Drug Use History: None Reported
[2024-10-17] MEDS ORDERED: LEVOTHYROXINE 88 MCG TAB PO SCH (06:30)
== END 2024-10-13 11:52 | disposition home health service (06) ==
LOC: OR 09:30 → 4SSUR 12:57 → OR 10-13 11:52
PROVIDERS: ATTEND Orthopaedic Surgery
DX: M16.12 Unilateral primary osteoarthritis, left hip (principal); K21.9 Gastro-esophageal reflux disease without esophagitis; L80 Vitiligo; E78.5 Hyperlipidemia, unspecified; G62.9 Polyneuropathy, unspecified; E03.9 Hypothyroidism, unspecified; E66.9 Obesity, unspecified; F17.210 Nicotine dependence, cigarettes, uncomplicated; F41.9 Anxiety disorder, unspecified; Z85.850 Personal history of malignant neoplasm of thyroid; Z96.643 Presence of artificial hip joint, bilateral; Z68.37 Body mass index [BMI] 37.0-37.9, adult; Z90.49 Acquired absence of other specified parts of digestive tract; Z98.890 Other specified postprocedural states; Z90.710 Acquired absence of both cervix and uterus; Z79.1 Long term (current) use of non-steroidal anti-inflammatories (NSAID); Z79.82 Long term (current) use of aspirin; Z79.890 Hormone replacement therapy; Z79.899 Other long term (current) drug therapy
CPT/HCPCS: 97161; 97166; 64473; 85025; 73501; 27130; C1776; S4990 ×2; J2250; J1100; J0690 ×2; J2405; J3010; J2795; J1171 ×2